=== PATIENT | female | born 2000 | race Caucasian/White ===

== ENCOUNTER 2024-10-03 10:56 | Outpatient (AMB) | payer MEDICAID, SELFPAY ==
[2024-10-03 11:13] VITALS: BP 121/79; PULSE 82; RESP 16; TEMP 36.7; O2SAT 98; BMI 29.9
--- NOTE | 2024-10-03 11:13 | OBCLNT_ITS ---
Vital Signs 10/03/24 11:13 Height 1.6 m Height Method Stated Weight 76.827 kg Weight Measurement Method Standing Scale BMI 29.9 BP 121/79 Blood Pressure Source Automatic Cuff Blood Pressure Location Left Upper Arm Position Sitting Respiration 16 Pulse 82 Pulse Source Monitor Temp 98.1 F Temp Source Oral Pulse Oximetry (%) 98 Oxygen Delivery Method Room Air Allergies/Home Meds Allergies & Medications Allergies Penicillins Allergy (Severe, Verified 10/03/24 11:14) Rash Medication Reconciliation vits no.126-ferrous fum 28 mg iron-folic acid 800 mcg tablet (Classic ) 1 tab PO QDAY 04/20/20 [History Confirmed 10/03/24] Intake Visit Data Collection New Patient or Established: Established Patient (seen at [facility] within 3 years) Reason for Visit:: INITIAL CARE Seen by Clinical Staff ONLY (RN/MA): No Study Abroad Coordinator Required: No Do You Feel Safe at Home: Yes Authorities Contacted: N/A PCP or OBGYN visit in last 3 months: No Hx Now: Yes Are you currently on any form of Control: No Last menstrual period: 06/02/24 Pain Present Currently: No Pain Scale Used: Prasad-Elaine/Numerical Pain scale:: 0 Smoking Status Smoking Status: Never smoker Questionnaires Covid-19 Vaccine Questionnaire Has patient been vacinated for Covid-19 Have you been vacinated for Covid-19: Yes PHQ-9 PHQ-2 Over the last 2 weeks, how often have you been bothered by any of the following problems? 1. Little interest or pleasure in doing things: not at all 2. Feeling down, depressed, or hopeless: not at all Total score: 0 PHQ-9 3. Trouble falling or staying asleep, or sleeping too much: Not at all 4. Feeling tired or having little energy: Not at all 5. Poor appetite or overeating: Not at all 6. Feeling bad about yourself - or that you are a failure or have let yourself or your family down: Not at all 7. Trouble concentrating on things, such as reading the newspaper or watching television: Not at all 8. Moving or speaking so slowly that other people could have noticed? - Or the opposite - being so fidgety or restless that you have been moving around a lot more than usual: not at all 9. Thoughts that you would be better off or of hurting yourself in some way: Not at all Total score: 0 Source: Developed by Drs. Deniz Younger, Lubna Lynn, Jordy Adkins and colleagues, with an educational ja from [employer]. 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 Feel Safe at Home: Yes Past Medical History Past Medical History Have you ever been diagnosed with any of the following: Neurological Problems Cerebrovascular Accident (CVA): No Transient Ischemic Attacks (TIA): No Dementia: No Alzheimer's Disease: No Parkinson's Disease: No Brain Tumor: No Meningitis: No Seizures: No Epilepsy: No Multiple Sclerosis: No Cerebral Palsy: No Amyotrophic Lateral Sclerosis (ALS/Callie Gehrig's): No Guillain-Lathrop Syndrome: No Brown's Palsy: No Migraine: No Traumatic Brain Injury: No Cardiology Problems Myocardial Infarction: No Cardiac Arrhythmia: No Atrial Fibrillation: No Angina: No Heart Murmur: No Coronary Artery Disease: No Atherosclerotic Heart Disease: No Peripheral Vascular Disease: No Hypercholesterolemia: No Congestive Heart Failure: No Hypertension: No Respiratory Problems Chronic Obstructive Pulmonary Disease (COPD): No Asthma: No Bronchitis: No Emphysema: No Pneumonia: No Pulmonary Fibrosis: No Tuberculosis: No Pulmonary Embolism: No Pulmonary Edema: No Hx Cough: No Cough: No Wheezing: No Chest Deformities: No Smoking: No Smoking Cessation Counseling: No Smoking Exposure: No Tobacco Use: No Stomache/Intestinal Problems Liver Cancer: No Hepatitis: No Cirrhosis: No Pancreatic Cancer: No Pancreatitis: No Gall Bladder Disease: No Colorectal Cancer: No Crohn's Disease: No Genital/Urinary Problems Chronic Kidney Disease: No Renal Disease: No Reproductive Problems Breast Cancer: No Endometriosis: No Fibroids: No Genital Herpes: No Gonorrhea: No Previous Pregnancies: Yes Musculoskeletal Problems Muscular Dystrophy: No Myasthenia Gravis: No Marfan's Syndrome: No Bone Cancer: No Head,Eye,Nose,Throat Problems Glaucoma: No Blind: No Endocrine Problems Diabetes Mellitus Type 1: No Diabetes Mellitus Type 2: No Blood Problems Anemia: Yes Other Problems Blood Transfusions: No Blood Transfusion Reaction: No Anesthesia Reactions: No Organ Transplant: No Chemotherapy: No Radiation Therapy: No Hyperbaric Therapy: No MRSA: No VRSA: No Vancomycin-Resistant Enterococci: No Human Immunodeficiency Virus (HIV): No Chicken Pox: No Measles: No Mumps: No Rubella (Afghan Measles): No Pertussis: No Clostridium Difficile: No Cancer: No Cervical Cancer: No Lung Cancer: No Ovarian Cancer: No History of Present Illness HPI Narrative Patient is a 3 para 2 presenting to establish care. Her last menstrual period was on June 02, 2024, but she notes having irregular cycles. Patient reports this as her worst so far, with significant weight loss, severe nausea, and inability to eat or drink. She is unable to have breakfast and struggles to consume water. These symptoms have been ongoing, though the exact onset is unclear. The severity is significant enough to impact her daily nutrition intake. No medication has been given for these symptoms prior to this visit. Patient had initial labs done at [facility] to confirm but has not had any labs or testing performed yet. This is her first visit for this . She has delivered two previous children, with her second delivery attended by one of the doctors in this practice. Obstetric history includes L2. Current is at 9 weeks 0 days (corrected by ultrasound) with an estimated due date of May 08, 2025. Medical history includes an ovarian cyst, size comparable to a baby's head. Surgical history includes ovarian cyst removal in [place] with a large incision made. 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 Review of systems is positive for weight loss, nausea, decreased appetite, inability to eat breakfast, and difficulty drinking water. OB Ultrasound OB Ultrasound Ultrasound technique: transabdominal Gestational sac assessment: Presence, location, size, shape: - Ultrasound (10/03/2024): - Gestational age: 9 weeks 0 days - heart rate detected OB Initial Visit OB Flowsheet OB Flowsheet Initial Weight: Not Recorded Date -?-?-?-?-?-?-?-?-?-?-?-?- EGA Weight Edema CTX Effacement BP Fundal ht Pres Dilation Effacement Station Visit Note Alb Glu FHR Mov 10/03/24 -?-?-?-?-?-?-?-?-?-?-?-?- 9w 0d 76.827 kg 121/79 Patie nt is a 3 para 2 presenting to establish care. Her last menstrual period was on June 02, 2024, but she notes having irregular cycles. Patient reports this as her worst so far, with significant weight loss, severe nausea, and inability to eat or drink. - Ultrasound examination revealed gestat ional age of 9 weeks and 0 days, with cardiac activity. - Adjusted estimated due date (JC) to N [id number] based on ultrasound findings. - Perform comprehensive labs. - Offer genetic testing, including optio n for gender determination. - Schedule follow-up appointment in 2 we eks for repeat ultrasound. - Provide patient with ultrasound images . - Prescribe antiemetic medication. - Provide patient education on managemen t of nausea and vomiting in . - Monitor weight and nutritional status at follow-up visits. 175 Menstrual History Menstrual reliability: definite Flow: heavy Menstrual regularity: irregular Monthly: No Age at menarche: 15 On control pills at conception: No Date of positive home test: 09/05/24 Associated symptoms (LMP): Reports nausea, vomiting, fatigue and breast tenderness OB History : 3 Para: 2 Hx # Pregnancies: 1 Hx Total # of Abortions (Spontaneous & Elective): 1 # of Living Children: 2 Delivery History 1st : Child's name: MOON date: 09/20/18 sex: male Gestational age at delivery (weeks): 37 Delivery type: vaginal Delivery complications: NONE History of depression before or after : No 2nd : Child's name: YIFAN date: 08/20/20 sex: female Gestational age at delivery (weeks): 40 Delivery type: vaginal History of depression before or after : No Infection History & Risk Evaluation History of STDs: none Genetic Screening & History Genetic Screening/Teratology Counseling - Includes patient, baby's father, or anyone in either family with: 1. Patient's age 35 years or older as of estimated date of delivery: No 2. Thalassemia (Burundian, Romansh, Mediterranean, or Background); MCV less than 80: No 3. Neural Tube Defect (Meningomyelocele, Spina Bifida, or Anencephaly): No 4. Congenital Heart Defect: No 5. Down Syndrome: No 6. Bryon-Sachs (Ashkenazi Pentecostal, Cajun, Yi Addison): No 7. [place] Disease (Ashkenazi Pentecostal): No 8. Familial Dysautonomia (Ashkenazi Pentecostal): No 9. Sickle Cell Disease or Trait (): No 10. Hemophilia or other blood disorders: No 11. Muscular Dystrophy: No 12. Cystic Fibrosis: No 13. Cipriano's Chorea: No 14. Mental Retardation/Autism: No 15. Other inherited genetic or chromosomal disorder: No 16. Maternal Metabolic Disorder (EG,TYPE 1 Diabetes, PKU): No 17. Patient or baby's father had a child with defects not listed above: No 18. Recurrent loss or a stillbirth: No 19. Medications (including supplements, vitamins, herbs or otc drugs)/illicit/recreational drugs/alcohol since last menstrual period: No 20. Any other: No Infection History 1. Live with someone with TB or exposed to TB: No 2. Rash or viral illness since last menstrual period: No 3. Hepatitis B,C: No Other (see comments) Source: [employer] Review of Systems Constitutional Constitutional: Reports fatigue Gastrointestinal Gastrointestinal: Reports nausea and Reports vomiting Endocrine Endocrine: Reports fatigue Assessment & Plan Diagnosis / Problem List (1) Supervision of high risk , unspecified, first trimester: Status: Acute Plan Intrauterine : - Ultrasound examination revealed gestational age of 9 weeks and 0 days, with cardiac activity. - Adjusted estimated due date (JC) to May 08, 2025 based on ultrasound findings. - Perform comprehensive labs. - Offer genetic testing, including option for gender determination. - Schedule follow-up appointment in 2 weeks for repeat ultrasound. - Provide patient with ultrasound images. Hyperemesis gravidarum: - Patient reports significant nausea, inability to eat or drink, and weight loss. - Prescribe antiemetic medication. - Provide patient education on management of nausea and vomiting in . - Monitor weight and nutritional status at follow-up visits. History of ovarian cyst: - Patient reports past surgical history of ovarian cystectomy performed in [place]. - Monitor for any recurrence of ovarian cysts during care. Office Procedures OB Clinic LOC & Office Proc's Nursing/Assessment Patient Status: Established Patient OB Clinic Nursing Assessment: Medication Reconciliation, Update PMH in EMR and Vital Signs OB Clinic Coordination of Care: Complex Care and Chronic Disease 1-5, Consent,records obtained, informed consent, Education Simp Pt/Fam, Lab and Imaging orders, Results/Orders obtained and Staff clarify orders Special Needs: Heart tones Established Patient Charge Established Patient Point Assignment: 135 Established Patient Point Charge: EP Level 4 (120-155) Bedside Ultrasounds US Transabdominal <14 weeks at bedside: Yes
== END 2024-10-03 11:37 | disposition home or self-care (01) ==
LOC: HODSOBC 10:56
PROVIDERS: PCP Family Medicine; Referring Provider Family Medicine; Supervising Provider Obstetrics & Gynecology; Visit Provider Obstetrics & Gynecology
DX: O09.891 Supervision of other high risk pregnancies, first trimester (principal); Z3A.09 9 weeks gestation of pregnancy; O21.0 Mild hyperemesis gravidarum; O99.891 Other specified diseases and conditions complicating pregnancy; R63.4 Abnormal weight loss; Z87.42 Personal history of other diseases of the female genital tract
CPT/HCPCS: 76801; 99214; G0463

== ENCOUNTER 2024-10-15 19:59 | Emergency (ER) | payer MEDICAID, SELFPAY ==
[2024-10-15 20:01] VITALS: BMI 30.5
[2024-10-15 20:27] VITALS: BP 118/54; PULSE 81; RESP 17; TEMP 36.8; O2SAT 98
--- NOTE | 2024-10-15 20:54 | EDNOTE_ITS ---
ED Abdominal Pain RME/HPI General Stated complaint: 10 WKS PREG VOMITING SOME BLOOD Time seen by provider: 10/15/24 20:14 Arrival date/time: 10/15/24 19:59 Source: patient, RN notes reviewed and old records reviewed Mode of arrival: ambulatory Limitations: no limitations RME / HPI RME / HPI narrative: 24yof A1 approximately 10 weeks gestation presents to ED for nausea and vomiting. Patient reports morning sickness throughout but with increased vomiting episodes for the past week. Patient reports noticing small specks of blood in emesis intermittently the past 2 days. Also c/o mild dysuria x3 weeks. No fever, diarrhea, pelvic pain, vaginal bleeding or dizziness reported. No medications or treatments since onset. OB: Dr. Gan. Related Data Home Medications ?Medication ?Instructions ?Recorded ?Confirmed vits no.126-ferrous fum 1 tab PO QDAY 0 10/03/24 28 mg iron-folic acid 800 mcg tablet (Classic ) Previous Rx's ?Medication ?Instructions ?Recorded cephalexin 500 mg capsule 500 mg PO BID 7 days #14 cap s 10/15/24 ondansetron 4 mg disintegrating 4 mg PO Q6H PRN nausea and 10/15/24 tablet vomiting #20 tabs Allergies Allergy/AdvReac Type Severity Reaction Status Date / Time Penicillins Allergy Severe Rash Verified 10/15/24 20:05 Review of Systems Review of Systems Systems Reviewed: All systems reviewed, normal except as documented Constitutional Constitutional: Denies chills and Denies fever(s) ENT Ears, Nose, Mouth, and Throat: Denies dizziness Gastrointestinal Gastrointestinal: Denies abdominal pain, Denies loose stools, Reports nausea and Reports vomiting Genitourinary Genitourinary: Denies abnormal vaginal bleeding, Reports dysuria and Denies pelvic pain Neurologic Neurologic: Denies dizziness Past Medical History Surgical History OTHER SURGICAL HX: Right oophorectomy Social History SMOKING STATUS: Never smoker SUBSTANCE USE: does not use ALCOHOL: Never Past Medical History Comments PMH COMMENT: Denies past medical history ED Exam General Limitations: Present no limitations General appearance: Present alert and in no apparent distress Head Head exam: Present atraumatic and normocephalic Eye Eye exam: Present normal appearance, PERRL and EOMI ENT ENT exam: Present normal exam and mucous membranes moist Neck Neck exam: Present normal inspection and full ROM Chest Chest inspection: Present normal inspection and symmetric chest wall rise Respiratory Respiratory exam: Present normal lung sounds bilaterally; Absent respiratory distress Cardiovascular Cardiovascular exam: Present regular rate and normal rhythm Abdominal Exam Abdominal exam: Present soft; Absent distention, tenderness, guarding or rebound Extremities Exam Extremities exam: Present normal inspection and full ROM Back Exam Back exam: Present normal inspection and full ROM; Absent CVA tenderness (R) or CVA tenderness (L) Neurological Exam Neurological exam: Present alert and oriented X3 Psychiatric Psychiatric exam: Present normal affect and normal mood Skin Skin exam: Present warm, dry, intact and normal color Course Quality Measures none Orders Category Date Time Status CBC Stat Lab 10/15/24 20:54 Completed CMP [Comprehensive Metabolic Panel] Stat Lab 10/15/24 20:54 Completed Lipase Stat Lab 10/15/24 20:54 Completed UA [Urinalysis] Stat Lab 10/15/24 21:15 Completed Ondansetron Inj [Zofran Inj] Med 10/15/24 21:07 Discontinued 4 mg IV X1 ONE Sodium Chloride 0.9% 1000 ml [Ns] 1,000 ml Med 10/15/24 21:08 Discontinued IV 999 mls/hr Vital Signs Vital signs: Vital Signs Temperature 98.2 F 10/15/24 20:27 Pulse Rate 81 10/15/24 20:27 Respiratory Rate 17 10/15/24 20:27 Blood Pressure 118/54 L 10/15/24 20:27 Pulse Oximetry (%) 98 10/15/24 20:27 Oxygen Delivery Method Room Air 10/15/24 20:27 Abdominal Pain MDM MDM Narrative MDM Narrative:: 24yof A1 approximately 10 weeks gestation presents to ED for nausea and vomiting. Patient reports morning sickness throughout but with increased vomiting episodes for the past week. Patient reports noticing small specks of blood in emesis intermittently the past 2 days. Also c/o mild dysuria x3 weeks. No fever, diarrhea, pelvic pain, vaginal bleeding or dizziness reported. No medications or treatments since onset. OB: Dr. Gan. Patient reassessed. She is feeling better, tolerating p.o. after zofran/IVF administered. Labs reassuring. Will treat for mild UTI as patient is symptomatic. Encouraged rest, fluids, symptomatic treatment prn. Follow up with Dr. Caro as scheduled. Stable for dc, RTED precautions given. Patient data External records reviewed:: [facility] previous records (11/18/22 ED visit for miscarriage in early ) Clinical information provided by:: patient Social determinants that could affect healthcare access:: other (specify) (Unemployed) Patient has the following chronic illnesses:: none How is presenting disease/condition affected by chronic disease/condition?: no chronic disease Evaluation data The following diagnostics were reviewed and interpreted by me:: lab results Lab and/or radiology exams considered but not ordered:: Ob ultrasound: denies pelvic pain or vaginal bleeding Interpretation Summary: CBC 8.5 Hgb 12.1 UA +ketones, +leuks Medications / Prescriptions Medications or Prescriptions considered but not ordered:: none Medication administrations:: Medication Administration History Discontinued Medications Sodium Chloride (Ns) 1,000 mls @ 999 mls/hr IV .Q1H1M ONE Stop: 10/15/24 22:08 Last Infusion: 10/15/24 22:52 Dose: Infused Documented By: Admin: 10/15/24 21:46 Dose: 999 mls/hr Documented By: HUMBERTO Ondansetron HCl (Ondansetron Inj 2 Mg/Ml Inj 2 Ml) 4 mg IV X1 ONE; Protocol Stop: 10/15/24 21:08 Last Admin: 10/15/24 22:08 Dose: 4 mg Documented By: CARMEN Above medications administered in the ED Consultations Consultation(s) initiated? (list below): No Diagnosis Differential diagnosis abdominal pain: other (Nausea and vomiting in , hyperemesis gravidarum, dehydration, electrolyte imbalance, UTI) Most likely diagnosis given after review of the tests above:: Nausea and vomiting in Admission Indicated Admission indicated?: not indicated Admission Request Was there a request for admission?: No Disposition Plan Disposition Plan: Discharge Discharge Attestation Discharge Attestation: The patient and all family members were given an opportunity to ask questions and understood the discharge instructions. Discharge instructions specifically effects, indications for sooner follow up or return to the emergency department, and the expected course of current diagnosis. Patient condition: Stable Discharge Plan Plan Patient Disposition: HOME (Self Care) Patient condition on transfer: Stable Prescriptions/Referrals Prescriptions/Med Rec: New ondansetron 4 mg tablet,disintegrating 4 mg PO Q6H PRN (Reason: nausea and vomiting) Qty: 20 0RF cephalexin 500 mg capsule 500 mg PO BID 7 Days Qty: 14 0RF No Action Classic 28 mg iron- 800 mcg tablet 1 tab PO QDAY Referrals: Filipe Oliva MD [Primary Care Provider] - In 1 week Problem List Clinical Impression: Nausea and vomiting in , Urinary tract infection during Patient/Caregiver Discharge Instructions Education Materials: Severe Morning Sickness ... Print Language: Greek Stand Alone Forms: Deb Award Info., Patient Portal Info Letter PA/TERRITORY SALES EXECUTIVE Supervising Physician PA/TERRITORY SALES EXECUTIVE Supervising Physician: Lynette
[2024-10-15 21:26] LABS: Collection Type, Urine Catheter
[2024-10-15 21:37] LABS: Basophils % (Auto) 1 % (0-2.5); Eosinophils # (Auto) 0.1 Thou/mm3 (0.0-0.5); Eosinophils % (Auto) 1 % (0-10); Hematocrit 35.4 % (36.0-46.0); Hemoglobin 12.1 g/dL (12.0-16.0); Immature Granulocytes % (Auto) 0 % (0-0); Immature Granulocytes Auto 0.03 Thou/mm3 (0.00-0.00); Lymphocytes # (Auto) 1.5 Thou/mm3 (1.0-4.8); Lymphocytes % (Auto) 17 % (10-50); Mean Corpuscular HGB Conc 34.2 g/dl (31.0-37.0); Mean Corpuscular Hemoglobin 28.6 pg (25.0-35.0); Mean Corpuscular Volume 84 fL (80-100); Monocytes # (Auto) 0.5 Thou/mm3 (0.0-0.8); Monocytes % (Auto) 6 % (0-12); Neutrophils # (Auto) 6.4 Thou/mm3 (1.8-7.7); Neutrophils % (Auto) 75 % (37-80); Nucleated Red Blood Cell % 0 /100 WBC (0); Platelet Count 298 Thou/mm3 (140-440); RDW Standard Deviation 42.8 fL (36.4-46.3); Red Blood Count 4.23 Miln/mm3 (4.00-5.20); White Blood Count 8.5 Thou/mm3 (3.6-11.0)
[2024-10-15 21:43] LABS: Bilirubin,Urine Negative (Negative); Blood,Urine Negative (Negative); Clarity,Urine Clear (Clear/Hazy); Color,Urine Yellow (Lt Yel-Yel); Glucose, Urine Negative (Negative); Ketones,Urine 2+ (Negative); Leukocyte Esterase,Urine Positive (Negative); Nitrite,Urine Negative (Negative); PH,Urine 6.5 (5.0-7.0); Protein,Urine Trace (Neg - Trace); RBC,Urine 3 /hpf (0-3); Specific Gravity,Urine 1.029 (1.001-1.035); Squamous Epithelial Cell,Urine 4 /hpf (0-5); WBC,Urine 17 /hpf (0-5)
[2024-10-15] MEDS: SODIUM CHLORIDE 0.9% 1000 ML 1,000 ML 999 ML IV (21:46)
[2024-10-15 21:52] LABS: Alanine Aminotransferase 21 U/L (10-49); Albumin, Serum 4.7 gm/dL (3.5-5.0); Albumin/Globulin Ratio 1.6 (1.2-2.2); Alkaline Phosphatase 55 U/L (46-116); Anion Gap 11 (7-16); Aspartate Amino Transferase 16 U/L (0-34); BUN/Creatinine Ratio 9 Ratio (12-20); Bilirubin,Total 0.5 mg/dL (0.3-1.2); Blood Urea Nitrogen 7 mg/dL (9-23); Calcium 9.6 mg/dL (8.3-10.6); Calcium (Corrected) 9.6 mg/dL (8.5-10.1); Carbon Dioxide 23.9 mMol/L (20.0-31.0); Chloride 100 mMol/L (98-107); Creatinine (Component) 0.8 mg/dL (0.6-1.3); Estimated Creatinine Clearance 103.3 mL/min (>60); Glucose 97 mg/dL (74-106); Lipase 24 U/L (12-53); Osmolality,Calculated 268 (275-295); Potassium 3.5 mMol/L (3.4-5.1); Sodium 135 mMol/L (136-145); Total Protein 7.7 gm/dL (5.7-8.2); eGFR > 60 See Note
[2024-10-15] MEDS: ONDANSETRON INJ 2 MG/ML INJ 2 ML 4 MG IV (22:08)
== END 2024-10-15 23:04 | disposition home or self-care (01) ==
PROVIDERS: Physician Assistant; Emergency Provider Emergency Medicine; PCP Family Medicine
DX: O21.9 Vomiting of pregnancy, unspecified (principal); O23.41 Unspecified infection of urinary tract in pregnancy, first trimester; N39.0 Urinary tract infection, site not specified; Z3A.10 10 weeks gestation of pregnancy
CPT/HCPCS: 36415; 80053; 81001; 83690; 85025; 99284; J2405; J7030

== ENCOUNTER 2024-10-25 13:42 | Outpatient (AMB) | payer MEDICAID, SELFPAY ==
--- NOTE | 2024-10-25 13:48 | AMB.OBVISIT ---
Vital Signs 10/25/24 13:53 Height 1.57 m Height Method Stated Weight 74.559 kg Weight Measurement Method Standing Scale BMI 30.0 BP 111/74 Blood Pressure Source Automatic Cuff Blood Pressure Location Left Upper Arm Position Sitting Respiration 16 Pulse 80 Pulse Source Monitor Temp 97.7 F Temp Source Oral Pulse Oximetry (%) 98 Oxygen Delivery Method Room Air Allergies/Home Meds Allergies & Medications Allergies Penicillins Allergy (Severe, Verified 10/25/24 13:54) Rash Medication Reconciliation clotrimazole 1 % vaginal cream (Gyne-Lotrimin 7) 1 appful vaginal QHS 7 days #45 grams 10/25/24 [Rx] ondansetron 4 mg disintegrating tablet 4 mg PO Q6H PRN nausea and vomiting 30 days #120 tabs 10/25/24 [Rx] vitamin with calcium no.72-iron 27 mg-folic acid 1 mg tablet ( Vitamins Plus Low Iron) 1 tab PO QDAY 90 days #90 tabs 10/25/24 [Rx] Intake Visit Data Collection New Patient or Established: Established Patient (seen at [facility] within 3 years) Reason for Visit:: Routine visit at 12 weeks and 1 day gestation, recent ER visit for blood spots on my vomer and severe vomiting Seen by Clinical Staff ONLY (RN/MA): No Industrial Maintenance Mechanic Required: No Do You Feel Safe at Home: Yes Authorities Contacted: N/A PCP or OBGYN visit in last 3 months: Yes Hx Now: Yes Are you currently on any form of Control: No Pain Present Currently: No Pain Scale Used: Prasad-Elaine/Numerical Pain scale:: 0 Smoking Status Smoking Status: Never smoker Questionnaires Covid-19 Vaccine Questionnaire Has patient been vacinated for Covid-19 Have you been vacinated for Covid-19: Yes PHQ-9 PHQ-2 Over the last 2 weeks, how often have you been bothered by any of the following problems? 1. Little interest or pleasure in doing things: not at all 2. Feeling down, depressed, or hopeless: not at all Total score: 0 PHQ-9 3. Trouble falling or staying asleep, or sleeping too much: Not at all 4. Feeling tired or having little energy: Not at all 5. Poor appetite or overeating: Not at all 6. Feeling bad about yourself - or that you are a failure or have let yourself or your family down: Not at all 7. Trouble concentrating on things, such as reading the newspaper or watching television: Not at all 8. Moving or speaking so slowly that other people could have noticed? - Or the opposite - being so fidgety or restless that you have been moving around a lot more than usual: not at all 9. Thoughts that you would be better off or of hurting yourself in some way: Not at all Total score: 0 Source: Developed by Drs. Deniz Younger, Lubna Lynn, Jordy Adkins and colleagues, with an educational ja from [employer]. Depression screen completed yes Social History Living Situation History Lives With: Family Housing: House Tobacco History Smoking Status: Never smoker Second Hand Smoke Exposure: No Alcohol History Alcohol Intake: Never Domestic Abuse History Do You Feel Safe at Home: Yes Past Medical History Past Medical History Have you ever been diagnosed with any of the following: Neurological Problems Cerebrovascular Accident (CVA): No Transient Ischemic Attacks (TIA): No Dementia: No Alzheimer's Disease: No Parkinson's Disease: No Brain Tumor: No Meningitis: No Seizures: No Epilepsy: No Multiple Sclerosis: No Cerebral Palsy: No Amyotrophic Lateral Sclerosis (ALS/Callie Gehrig's): No Guillain-Spencer Syndrome: No Brown's Palsy: No Migraine: No Traumatic Brain Injury: No Cardiology Problems Myocardial Infarction: No Cardiac Arrhythmia: No Atrial Fibrillation: No Angina: No Heart Murmur: No Coronary Artery Disease: No Atherosclerotic Heart Disease: No Peripheral Vascular Disease: No Hypercholesterolemia: No Congestive Heart Failure: No Hypertension: No Respiratory Problems Chronic Obstructive Pulmonary Disease (COPD): No Asthma: No Bronchitis: No Emphysema: No Pneumonia: No Pulmonary Fibrosis: No Tuberculosis: No Pulmonary Embolism: No Pulmonary Edema: No Hx Cough: No Cough: No Wheezing: No Chest Deformities: No Smoking: No Smoking Cessation Counseling: No Smoking Exposure: No Tobacco Use: No Stomache/Intestinal Problems Liver Cancer: No Hepatitis: No Cirrhosis: No Pancreatic Cancer: No Pancreatitis: No Gall Bladder Disease: No Colorectal Cancer: No Crohn's Disease: No Genital/Urinary Problems Renal Disease: No Reproductive Problems Breast Cancer: No Endometriosis: No Fibroids: No Genital Herpes: No Gonorrhea: No Previous Pregnancies: Yes Musculoskeletal Problems Muscular Dystrophy: No Myasthenia Gravis: No Marfan's Syndrome: No Bone Cancer: No Head,Eye,Nose,Throat Problems Glaucoma: No Blind: No Endocrine Problems Diabetes Mellitus Type 1: No Diabetes Mellitus Type 2: No Blood Problems Anemia: Yes Other Problems Blood Transfusions: No Blood Transfusion Reaction: No Anesthesia Reactions: No Organ Transplant: No Chemotherapy: No Radiation Therapy: No Hyperbaric Therapy: No MRSA: No VRSA: No Vancomycin-Resistant Enterococci: No Human Immunodeficiency Virus (HIV): No Chicken Pox: No Measles: No Mumps: No Rubella (Sudanese Measles): No Pertussis: No Clostridium Difficile: No Cancer: No Cervical Cancer: No Lung Cancer: No Ovarian Cancer: No History of Present Illness OPHELIA Mendoza is a 12 weeks and 1 day patient presenting for a visit. She was last seen on October 03, 2024, and initiated her care at [facility]. The patient reports a recent emergency room visit due to severe vomiting and noticing blood spots on her vomer (throat). She was given Zofran in the ER, which has helped improve her symptoms. The patient denies any current cramping or spotting. Regarding medication adherence, the patient has not been taking her vitamins and requests a prescription. She also requests a refill for her anti-nausea medication (Zofran). Medications and Supplements - Zofran - Given in ER for severe vomiting - vitamins - Not taking Review of Systems HEENT: Positive for blood spots on vomer (throat). Gastrointestinal: Positive for severe vomiting, negative for cramping. Genitourinary: Negative for spotting. Vital Signs - Heart Rate: 158 bpm Physical Examination Abdomen: Fundal height consistent with 12 weeks gestation. Laboratory, Imaging, and Diagnostic Test Results - Hepatitis B: Negative - Hepatitis C: Negative - RPR: Non-reactive - Rubella: Immune - Blood group: O-positive - Antibody screen: Negative - HIV: Negative - Gonorrhea: Negative - Chlamydia: Negative - CBC: - Hemoglobin: 11.8 g/dL - Hematocrit: 35.9% - Platelets: 310 x10^3/?L - Urinalysis: - Appearance: Turbid - WBC esterase: 1+ - Ketones: Trace - Bacteria: Moderate - Culture: No growth - Maternity 21: - fraction: 18% - gender: Male - Aneuploidy testing: Negative - Ultrasound: - Gestational age: 12 weeks - heart rate: 158 bpm Care OB Visit Log OB Flowsheet Initial Weight: Not Recorded Date <del>?</del> EGA Weight Edema CTX Effacement BP Fundal ht Pres Dilation Effacement Station Visit Note Alb Glu FHR Mov 10/03/24 <del>?</del> 9w 0d 76.827 kg 121/79 Patient is a 3 para 2 presenting to establish care. Her last menstrual period was on June 02, 2024, but she notes having irregular cycles. Patient reports this as her worst so far, with significant weight loss, severe nausea, and inability to eat or drink. - Ultrasound examination revealed gestational age of 9 weeks and 0 days, with cardiac activity. - Adjusted estimated due date (JC) to May 08, 2025 based on ultrasound findings. - Perform comprehensive labs. - Offer genetic testing, including option for gender determination. - Schedule follow-up appointment in 2 weeks for repeat ultrasound. - Provide patient with ultrasound images. - Prescribe antiemetic medication. - Provide patient education on management of nausea and vomiting in . - Monitor weight and nutritional status at follow-up visits. 175 10/25/24 <del>?</del> 12w 1d 74.559 kg 111/74 Vital Signs - Heart Rate: 158 bpm Physical Examination Abdomen: Fundal height consistent with 12 weeks gestation. Laboratory, Imaging, and Diagnostic Test Results - Hepatitis B: Negative - Hepatitis C: Negative - RPR: Non-reactive - Rubella: Immune - Blood group: O-positive - Antibody screen: Negative - HIV: Negative - Gonorrhea: Negative - Chlamydia: Negative - CBC: - Hemoglobin: 11.8 g/dL - Hematocrit: 35.9% - Platelets: 310 x10^3/?L - Urinalysis: - Appearance: Turbid - WBC esterase: 1+ - Ketones: Trace - Bacteria: Moderate - Culture: No growth - Maternity 21: - fraction: 18% - gender: Male - Aneuploidy testing: Negative - Ultrasound: - Gestational age: 12 weeks - heart rate: 158 bpm. Woodrow Rodrigez?P? at 12w1d, presents for routine visit following a recent ER visit for hyperemesis gravidarum. She reports vomiting with blood spots noted in the throat, managed in the ER with Zofran, which improved symptoms. She denies cramping or spotting. Currently not taking vitamins. Fundal height is consistent with gestational age. Labs show mild anemia (Hgb 11.8, Hct 35.9). Male fetus confirmed via genetic testing. Plan: Prescribe Zofran for ongoing nausea; provide refills [facility] Encourage increased oral hydration and small, frequent meals Refer for 20-week anatomy ultrasound at [facility] (await scheduling call) Follow up in 4 weeks Continue standard counseling and review warning signs of complications 160 JC Calculator Estimated Delivery Date Method Current WG Current Estimate 05/08/25 Ultrasound #1 12w 3d Other Estimates 03/09/25 LMP (Uncertain) 21w 0d Exam General General Appearance: alert, in no apparent distress and healthy appearing Head Head exam: atraumatic Neck Neck exam: Present normal inspection and trachea midline Chest Chest inspection: Present normal inspection and symmetric chest wall rise External exam: Present normal external exam; Absent tenderness Neuro Neurological exam: Present oriented X3 Psych Psychiatric exam: Present normal affect and normal mood Assessment & Plan Diagnosis / Problem List (1) Supervision of high risk , unspecified, first trimester: Status: Acute (2) Acute vaginitis: Status: Acute Plan Romelia Mendoza is a 12 weeks and 1 day patient presenting for a visit with a recent history of severe nausea and vomiting requiring an ER visit. Intrauterine at 12 weeks 1 day gestation Assessment: Patient is at 12 weeks and 1 day gestation based on ultrasound measurements, which is consistent with her dates. heart rate is 158 bpm, which is within normal range. Genetic testing (Maternity 21) shows 18% fraction, consistent with male fetus, and negative for aneuploidy. Comprehensive labs were completed, including hepatitis B and C (negative), RPR (non-reactive), rubella (immune), blood type (O positive with negative antibody screen), HIV (negative), and gonorrhea and chlamydia (negative). CBC shows hemoglobin of 11.8 g/dL and hematocrit of 35.9%, indicating mild anemia. Initial urine screening showed turbid appearance with trace ketones and moderate bacteria, but final culture showed no growth. Plan: - Continue care with follow-up appointment in 4 weeks - Scheduled anatomy ultrasound at 20 weeks with [facility] in [place] (referral sent) - Prescribe vitamins - Encourage increased hydration Hyperemesis gravidarum Assessment: Patient reports recent ER visit due to severe vomiting, which resulted in blood spots on her vomer (likely Delphine-Velasco tears). She was prescribed Zofran (ondansetron) in the ER, which has improved her symptoms. Plan: - Continue Zofran (ondansetron) as needed for nausea and vomiting - Provide prescription refills for Zofran - Educate on importance of hydration and small, frequent meals Office Procedures OB Clinic LOC & Office Proc's Nursing/Assessment Patient Status: Established Patient OB Clinic Nursing Assessment: Medication Reconciliation, Update PMH in EMR and Vital Signs OB Clinic Coordination of Care: Complex Care and Chronic Disease 1-5, Consent,records obtained, informed consent, Education Simp Pt/Fam, Lab and Imaging orders, Results/Orders obtained and Staff clarify orders Special Needs: Heart tones Miscellaneous Interventions: Blood/Urine Collection Established Patient Charge Established Patient Point Assignment: 165 Established Patient Point Charge: EP Level 5 (160-above)
[2024-10-25 13:53] VITALS: BP 111/74; PULSE 80; RESP 16; TEMP 36.5; O2SAT 98
== END 2024-10-25 14:46 | disposition home or self-care (01) ==
LOC: HODSOBC 13:42
PROVIDERS: PCP Family Medicine; Referring Provider Family Medicine; Supervising Provider Obstetrics & Gynecology; Visit Provider Obstetrics & Gynecology
DX: O09.891 Supervision of other high risk pregnancies, first trimester (principal); Z3A.12 12 weeks gestation of pregnancy; N76.0 Acute vaginitis; O21.0 Mild hyperemesis gravidarum; Z88.0 Allergy status to penicillin
CPT/HCPCS: 99215; G0463

== ENCOUNTER 2024-11-22 14:02 | Outpatient (AMB) | payer MEDICAID, SELFPAY ==
[2024-11-22 14:31] VITALS: BP 100/66; PULSE 71; RESP 14; TEMP 36.6; O2SAT 95
--- NOTE | 2024-11-22 14:31 | AMB.OBVISIT ---
Vital Signs 11/22/24 14:31 Height 1.57 m Height Method Stated Weight 74.049 kg Weight Measurement Method Standing Scale BMI 30.0 BP 100/66 Blood Pressure Source Automatic Cuff Blood Pressure Location Right Upper Arm Position Sitting Respiration 14 Pulse 71 Pulse Source Monitor Temp 97.8 F Temp Source Oral Pulse Oximetry (%) 95 Oxygen Delivery Method Room Air Allergies/Home Meds Allergies & Medications Allergies Penicillins Allergy (Severe, Verified 11/22/24 14:32) Rash Medication Reconciliation ondansetron 4 mg disintegrating tablet 4 mg PO Q6H PRN nausea and vomiting 30 days #120 tabs 10/25/24 [Rx Confirmed 11/22/24] vitamin with calcium no.72-iron 27 mg-folic acid 1 mg tablet ( Vitamins Plus Low Iron) 1 tab PO QDAY 90 days #90 tabs 10/25/24 [Rx Confirmed 11/22/24] Intake Visit Data Collection New Patient or Established: Established Patient (seen at [facility] within 3 years) Reason for Visit:: CARE Seen by Clinical Staff ONLY (RN/MA): No Licensed Physical Therapy Assistant Required: No Do You Feel Safe at Home: Yes Authorities Contacted: N/A PCP or OBGYN visit in last 3 months: Yes Hx Now: Yes Are you currently on any form of Control: No Pain Present Currently: No Pain Scale Used: Prasad-Elaine/Numerical Pain scale:: 0 Smoking Status Smoking Status: Never smoker Questionnaires Covid-19 Vaccine Questionnaire Has patient been vacinated for Covid-19 Have you been vacinated for Covid-19: Yes PHQ-9 PHQ-2 Over the last 2 weeks, how often have you been bothered by any of the following problems? 1. Little interest or pleasure in doing things: not at all 2. Feeling down, depressed, or hopeless: not at all Total score: 0 PHQ-9 3. Trouble falling or staying asleep, or sleeping too much: Not at all 4. Feeling tired or having little energy: Not at all 5. Poor appetite or overeating: Not at all 6. Feeling bad about yourself - or that you are a failure or have let yourself or your family down: Not at all 7. Trouble concentrating on things, such as reading the newspaper or watching television: Not at all 8. Moving or speaking so slowly that other people could have noticed? - Or the opposite - being so fidgety or restless that you have been moving around a lot more than usual: not at all 9. Thoughts that you would be better off or of hurting yourself in some way: Not at all Total score: 0 Source: Developed by Drs. Deniz Younger, Lubna Lynn, Jordy Adkins and colleagues, with an educational ja from [employer]. 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 Her last menstrual period was on June 02, 2024, but she notes having irregular cycles. Patient reports this as her worst so far, with significant weight loss, severe nausea, and inability to eat or drink. - Ultrasound examination revealed gestational age of 9 weeks and 0 days, with cardiac activity. - Adjusted estimated due date (JC) to May 08, 2025 based on ultrasound findings. - Perform comprehensive labs. - Offer genetic testing, including option for gender determination. - Schedule follow-up appointment in 2 weeks for repeat ultrasound. - Provide patient with ultrasound images. - Prescribe antiemetic medication. - Provide patient education on management of nausea and vomiting in . - Monitor weight and nutritional status at follow-up visits. 10/25/24 <del>?</del> 12w 1d 74.559 kg 111/74 160 Vital Signs - Heart Rate: 158 bpm Physical Examination Abdomen: Fundal height consistent with 12 weeks gestation. Laboratory, Imaging, and Diagnostic Test Results - Hepatitis B: Negative - Hepatitis C: Negative - RPR: Non-reactive - Rubella: Immune - Blood group: O-positive - Antibody screen: Negative - HIV: Negative - Gonorrhea: Negative - Chlamydia: Negative - CBC: - Hemoglobin: 11.8 g/dL - Hematocrit: 35.9% - Platelets: 310 x10^3/?L - Urinalysis: - Appearance: Turbid - WBC esterase: 1+ - Ketones: Trace - Bacteria: Moderate - Culture: No growth - Maternity 21: - fraction: 18% - gender: Male - Aneuploidy testing: Negative - Ultrasound: - Gestational age: 12 weeks - heart rate: 158 bpm. Romelia Mendoza, G?P? at 12w1d, presents for routine visit following a recent ER visit for hyperemesis gravidarum. She reports vomiting with blood spots noted in the throat, managed in the ER with Zofran, which improved symptoms. She denies cramping or spotting. Currently not taking vitamins. Fundal height is consistent with gestational age. Labs show mild anemia (Hgb 11.8, Hct 35.9). Male fetus confirmed via genetic testing. Plan: Prescribe Zofran for ongoing nausea; provide refills [facility] Encourage increased oral hydration and small, frequent meals Refer for 20-week anatomy ultrasound at [facility]? (await scheduling call) Follow up in 4 weeks Continue standard counseling and review warning signs of complications 11/22/24 <del>?</del> 16w 1d 74.049 kg 100/66 absent unknown 16 146 active No OB complaints, no leaking or bleeding AFP today, [facility] appointment pending, discuss sab precaution. continue PNV, increase fluid, rtc 4 week JC Calculator Estimated Delivery Date Method Current WG Current Estimate 05/08/25 Ultrasound #1 16w 1d Other Estimates 03/09/25 LMP (Uncertain) 24w 5d Notes Visit Date: 11/22/24 Last Updated by: Tash Salgado CNM 24 yo . lmp 06/02/24. edc 03/09/25. ob sono: 10/03/24: iup 9w. edc 05/08/25. no dates. O+,abs-,rpr;;nr, rub IM, HBSAG-,HC-,HIV-,GC/CT-, NIPT and carrier screen- Office Procedures OB Clinic LOC & Office Proc's Nursing/Assessment Patient Status: Established Patient OB Clinic Nursing Assessment: Medication Reconciliation, Update PMH in EMR and Vital Signs OB Clinic Coordination of Care: Complex Care and Chronic Disease 1-5, Consent,records obtained, informed consent, Education Simp Pt/Fam, Lab and Imaging orders, Results/Orders obtained and Staff clarify orders Special Needs: Heart tones Established Patient Charge Established Patient Point Assignment: 135 Established Patient Point Charge: EP Level 4 (120-155) Assessment & Plan Diagnosis / Problem List (1) Normal in multigravida in second trimester: Status: Acute Plan aFP today. Maternal- medicine appointment is pending. Discussed SAB precautions. Increase fluids. Continue vitamins. Return in 3 weeks obc Additional Plan Follow Up: 3 Weeks (obc)
== END 2024-11-22 14:53 | disposition home or self-care (01) ==
LOC: HODSOBC 14:02
PROVIDERS: PCP Family Medicine; Referring Provider Family Medicine; Supervising Provider Advanced Practice Midwife; Visit Provider Advanced Practice Midwife
DX: Z34.82 Encounter for supervision of other normal pregnancy, second trimester (principal); Z3A.16 16 weeks gestation of pregnancy; Z88.0 Allergy status to penicillin
CPT/HCPCS: 99214; G0463

== ENCOUNTER 2024-12-27 14:52 | Outpatient (AMB) | payer MEDICAID, SELFPAY ==
[2024-12-27 15:05] VITALS: BP 107/69; PULSE 73; RESP 17; TEMP 36.6; O2SAT 98; BMI 30.2
--- NOTE | 2024-12-27 15:05 | OBCLNT_ITS ---
Vital Signs 12/27/24 15:05 Height 1.57 m Height Method Measured Weight 74.389 kg Weight Measurement Method Standing Scale BMI 30.2 BP 107/69 Blood Pressure Source Automatic Cuff Blood Pressure Location Right Upper Arm Position Sitting Respiration 17 Pulse 73 Pulse Source Monitor Temp 97.8 F Temp Source Temporal Artery Scan Pulse Oximetry (%) 98 Oxygen Delivery Method Room Air Allergies/Home Meds Allergies & Medications Allergies Penicillins Allergy (Severe, Verified 12/27/24 15:06) Rash Medication Reconciliation vitamin with calcium no.72-iron 27 mg-folic acid 1 mg tablet ( Vitamins Plus Low Iron) 1 tab PO QDAY 90 days #90 tabs 10/25/24 [Rx Confirmed 12/27/24] Intake Visit Data Collection New Patient or Established: Established Patient (seen at [facility] within 3 years) Reason for Visit:: OBC Consent obtained for Telemed Visit: No Seen by Clinical Staff ONLY (RN/MA): No Electrical Laboratory 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 1. Little interest or pleasure in doing things: not at all PHQ-9 8. Moving or speaking so slowly that other people could have noticed? - Or the opposite - being so fidgety or restless that you have been moving around a lot more than usual: not at all Source: Developed by Drs. Deniz Younger, Lubna Lynn, Jordy Adkins and colleagues, with an educational ja from [email or web address]. 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 Her last menstrual period was on June 02, 2024, but she notes having irregular cycles. Patient reports this as her worst so far, with significant weight loss, severe nausea, and inability to eat or drink. - Ultrasound examination revealed gestat ional age of 9 weeks and 0 days, with cardiac activity. - Adjusted estimated due date (JC) to N ovember 2024 based on ultrasound findings. - Perform comprehensive labs. - Offer genetic testing, including optio n for gender determination. - Schedule follow-up appointment in 2 we eks for repeat ultrasound. - Provide patient with ultrasound images . - Prescribe antiemetic medication. - Provide patient education on managemen t of nausea and vomiting in . - Monitor weight and nutritional status at follow-up visits. 10/25/24 -?-?-?-?-?-?-?-?-?-?-?-?- 12w 1d 74.559 kg 111/74 160 Vital Signs - Heart Rate: 158 bpm Physical Examination Abdomen: Fundal height consistent with 1 2 weeks gestation. Laboratory, Imaging, and Diagnostic Test Results - Hepatitis B: Negative - Hepatitis C: Negative - RPR: Non-reactive - Rubella: Immune - Blood group: O-positive - Antibody screen: Negative - HIV: Negative - Gonorrhea: Negative - Chlamydia: Negative - CBC: - Hemoglobin: 11.8 g/dL - Hematocrit: 35.9% - Platelets: 310 x10^3/?L - Urinalysis: - Appearance: Turbid - WBC esterase: 1+ - Ketones: Trace - Bacteria: Moderate - Culture: No growth - Maternity 21: - fraction: 18% - gender: Male - Aneuploidy testing: Negative - Ultrasound: - Gestational age: 12 weeks - heart rate: 158 bpm. Romelia Mendoza, G?P? at 12w1d, presents for routine visit following a recent ER visit for hyperemesis gravidarum. She reports vomiting with blood spots noted in the throat, managed in the ER with Zofran, which improved symptoms. She denies cramping or spotting. Currently not taking vitamins. Fundal height is consistent with gestational age. Labs show mild anemia (Hgb 11.8, Hct 35.9). Male fetus confirmed via genetic testing. Plan: Prescribe Zofran for ongoing nausea; pro vide refills Send prescription for vitamins to [facility] Encourage increased oral hydration and s mall, frequent meals Refer for 20-week anatomy ultrasound at [facility]?s (await scheduling [facility]) Follow up in 4 weeks Continue standard counseling and review warning sig ns of complications 11/22/24 -?-?-?-?-?-?-?-?-?-?-?-?- 16w 1d 74.049 kg 100/66 absent unknown 16 146 active No OB complaints, no leaking or bleeding AFP today, M FM appointment pending, discuss sab precaution. continue PNV, increase fluid, rtc 4 week 12/27/24 -?-?-?-?-?-?-?-?-?-?-?-?- 21w 1d 74.389 kg 107/69 absent unknown 20 145 active fetus active, no c/o PTL s/s. headache sometime. repeat MFM 6 week f/u mfm 6 week. fetus active. discuss PTL precaution. hydrate. rtc 4 week JC Calculator Estimated Delivery Date Method Current WG Current Estimate 05/08/25 Ultrasound #1 21w 1d Other Estimates 03/09/25 LMP (Uncertain) 29w 5d Notes Visit Date: 11/22/24 Last Updated by: Tash Salgado CNM 24 yo . lmp 06/02/24. edc 03/09/25. ob sono: 10/03/24: iup 9w. edc 05/08/25. no dates. O+,abs-,rpr;;nr, rub IM, HBSAG-,HC-,HIV-,GC/CT-, NIPT and carrier screen- Office Procedures OB Clinic LOC & Office Proc's Nursing/Assessment Patient Status: Established Patient OB Clinic Nursing Assessment: Medication Reconciliation, Update PMH in EMR and Vital Signs OB Clinic Coordination of Care: Complex Care and Chronic Disease 1-5, Consent,records obtained, informed consent, Education Simp Pt/Fam, Lab and Imaging orders and Staff clarify orders Special Needs: Heart tones Miscellaneous Interventions: Blood/Urine Collection Established Patient Charge Established Patient Point Assignment: 160 Established Patient Point Charge: EP Level 5 (160-above) Assessment & Plan Diagnosis / Problem List (1) Normal in multigravida in second trimester: Status: Acute Plan call for sono results, discuss ptl precaution, hydrate, increase protiein. mfm f/u 6 week. 3rd tri lab nv. rtc 4 week Additional Plan Follow Up: 4 Weeks (obc)
== END 2024-12-27 15:32 | disposition home or self-care (01) ==
LOC: HODSOBC 14:52
PROVIDERS: PCP Family Medicine; Referring Provider Family Medicine; Supervising Provider Advanced Practice Midwife; Visit Provider Advanced Practice Midwife
DX: Z34.82 Encounter for supervision of other normal pregnancy, second trimester (principal); Z3A.21 21 weeks gestation of pregnancy; Z88.0 Allergy status to penicillin
CPT/HCPCS: 99215; G0463

== ENCOUNTER 2025-01-24 14:25 | Outpatient (AMB) | payer MEDICAID, SELFPAY ==
[2025-01-24 14:30] VITALS: BP 108/66; PULSE 86; RESP 17; TEMP 36.5; O2SAT 98; BMI 30.2
--- NOTE | 2025-01-24 14:30 | OBCLNT_ITS ---
Vital Signs 01/24/25 14:30 Height 1.57 m Height Method Measured Weight 74.389 kg Weight Measurement Method Standing Scale BMI 30.2 BP 108/66 Blood Pressure Source Automatic Cuff Blood Pressure Location Right Upper Arm Position Sitting Respiration 17 Pulse 86 Pulse Source Monitor Temp 97.7 F Temp Source Temporal Artery Scan Pulse Oximetry (%) 98 Oxygen Delivery Method Room Air Allergies/Home Meds Allergies & Medications Allergies Penicillins Allergy (Severe, Verified 01/24/25 14:31) Rash Medication Reconciliation vitamins with calcium no.72-iron 27 mg-folic acid 1 mg tablet ( Vitamins Plus Low Iron) 1 tab PO QDAY 90 days #90 tabs 10/25/24 [Rx Confirmed 01/24/25] Intake Visit Data Collection New Patient or Established: Established Patient (seen at [facility] within 3 years) Reason for Visit:: OBC Consent obtained for Telemed Visit: No Seen by Clinical Staff ONLY (RN/MA): No 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 1. Little interest or pleasure in doing things: not at all PHQ-9 8. Moving or speaking so slowly that other people could have noticed? - Or the opposite - being so fidgety or restless that you have been moving around a lot more than usual: not at all Source: Developed by Drs. Deniz Younger, Lubna Lynn, Jordy Adkins and colleagues, with an educational ja from [employer]. 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 Her last menstrual period was on June 02, 2024, but she notes having irregular cycles. Patient reports this as her worst so far, with significant weight loss, severe nausea, and inability to eat or drink. - Ultrasound examination revealed gestat ional age of 9 weeks and 0 days, with cardiac activity. - Adjusted estimated due date (JC) to N ovember 2024 based on ultrasound findings. - Perform comprehensive labs. - Offer genetic testing, including optio n for gender determination. - Schedule follow-up appointment in 2 we eks for repeat ultrasound. - Provide patient with ultrasound images . - Prescribe antiemetic medication. - Provide patient education on managemen t of nausea and vomiting in . - Monitor weight and nutritional status at follow-up visits. 10/25/24 -?-?-?-?-?-?-?-?-?-?-?-?- 12w 1d 74.559 kg 111/74 160 Vital Signs - Heart Rate: 158 bpm Physical Examination Abdomen: Fundal height consistent with 1 2 weeks gestation. Laboratory, Imaging, and Diagnostic Test Results - Hepatitis B: Negative - Hepatitis C: Negative - RPR: Non-reactive - Rubella: Immune - Blood group: O-positive - Antibody screen: Negative - HIV: Negative - Gonorrhea: Negative - Chlamydia: Negative - CBC: - Hemoglobin: 11.8 g/dL - Hematocrit: 35.9% - Platelets: 310 x10^3/?L - Urinalysis: - Appearance: Turbid - WBC esterase: 1+ - Ketones: Trace - Bacteria: Moderate - Culture: No growth - Maternity 21: - fraction: 18% - gender: Male - Aneuploidy testing: Negative - Ultrasound: - Gestational age: 12 weeks - heart rate: 158 bpm. Romelia Mendoza, G?P? at 12w1d, presents for routine visit following a recent ER visit for hyperemesis gravidarum. She reports vomiting with blood spots noted in the throat, managed in the ER with Zofran, which improved symptoms. She denies cramping or spotting. Currently not taking vitamins. Fundal height is consistent with gestational age. Labs show mild anemia (Hgb 11.8, Hct 35.9). Male fetus confirmed via genetic testing. Plan: Prescribe Zofran for ongoing nausea; pro vide refills Send prescription for vitamins to [facility] Encourage increased oral hydration and s mall, frequent meals Refer for 20-week anatomy ultrasound at [facility]?s (await scheduling call) Follow up in 4 weeks Continue standard counseling and review warning sig ns of complications 11/22/24 -?-?-?-?-?-?-?-?-?-?-?-?- 16w 1d 74.049 kg 100/66 absent unknown 16 146 active No OB complaints, no leaking or bleeding AFP today, M appointment pending, discuss sab precaution. continue PNV, increase fluid, rtc 4 week 12/27/24 -?-?-?-?-?-?-?-?-?-?-?-?- 21w 1d 74.389 kg 107/69 absent unknown 20 145 active fetus active, no c/o PTL s/s. headache sometime. repeat MFM 6 week f/u mfm 6 week. fetus active. discuss PTL precaution. hydrate. rtc 4 week 01/24/25 -?-?-?-?-?-?-?-?-?-?-?-?- 25w 1d 74.389 kg 108/66 absent unknown 25 145 active headache and back pain. feels better today, fetus active. denies bleeding or leaking, fetus active 3rd tri lab toda y. f/u growth sonon 4-6 week. discuss diet and weight. ptl precaution, fluid, rtc 4 week JC Calculator Estimated Delivery Date Method Current WG Current Estimate 05/08/25 Ultrasound #1 25w 1d Other Estimates 03/09/25 LMP (Uncertain) 33w 5d 05/08/25 Ultrasound #2 25w 1d Notes Visit Date: 11/22/24 Last Updated by: Tash Salgado CNM 24 yo . lmp 06/02/24. edc 03/09/25. ob sono: 10/03/24: iup 9w. edc 05/08/25. no dates. O+,abs-,rpr;;nr, rub IM, HBSAG-,HC-,HIV-,GC/CT-, NIPT and carrier screen- Office Procedures OB Clinic LOC & Office Proc's Nursing/Assessment Patient Status: Established Patient OB Clinic Nursing Assessment: Medication Reconciliation, Update PMH in EMR and Vital Signs OB Clinic Coordination of Care: Complex Care and Chronic Disease 1-5, Consent,records obtained, informed consent, Education Simp Pt/Fam and 4+ Authorizations needed Special Needs: Heart tones Established Patient Charge Established Patient Point Assignment: 130 Established Patient Point Charge: EP Level 4 (120-155) Assessment & Plan Diagnosis / Problem List (1) Normal in multigravida in second trimester: Status: Acute Plan 3rd tri lab, discuss ptl precaution. hydrate. comfort measure for back ache and headache. f/u mfm 4-6 week. rtc 3 week Additional Plan Follow Up: 3 Weeks (obc)
== END 2025-01-24 15:11 | disposition home or self-care (01) ==
LOC: HODSOBC 14:25
PROVIDERS: PCP Family Medicine; Referring Provider Family Medicine; Supervising Provider Advanced Practice Midwife; Visit Provider Advanced Practice Midwife
DX: O09.892 Supervision of other high risk pregnancies, second trimester (principal); O99.891 Other specified diseases and conditions complicating pregnancy; M54.9 Dorsalgia, unspecified; R51.9 Headache, unspecified; Z3A.25 25 weeks gestation of pregnancy; Z88.0 Allergy status to penicillin
CPT/HCPCS: 99214; G0463

== ENCOUNTER 2025-03-01 08:37 | Outpatient (AMB) | payer MEDICAID, SELFPAY ==
[2025-03-01 11:14] VITALS: BP 105/65; PULSE 79; RESP 16; TEMP 36.2; O2SAT 98; BMI 30.4
--- NOTE | 2025-03-01 11:14 | OBCLNT_ITS ---
Vital Signs 03/01/25 11:14 Height 1.57 m Height Method Stated Weight 74.899 kg Weight Measurement Method Standing Scale BMI 30.4 BP 105/65 Blood Pressure Source Automatic Cuff Blood Pressure Location Left Upper Arm Position Sitting Respiration 16 Pulse 79 Pulse Source Monitor Temp 97.2 F Temp Source Oral Pulse Oximetry (%) 98 Oxygen Delivery Method Room Air Allergies/Home Meds Allergies & Medications Allergies Penicillins Allergy (Severe, Verified 03/01/25 11:15) Rash Medication Reconciliation vitamins with calcium no.72-iron 27 mg-folic acid 1 mg tablet ( Vitamins Plus Low Iron) 1 tab PO QDAY 90 days #90 tabs 10/25/24 [Rx Confirmed 03/01/25] ferrous sulfate 325 mg (65 mg iron) tablet 325 mg PO BID #60 tabs 02/27/25 [Rx Confirmed 03/01/25] Intake Visit Data Collection New Patient or Established: Established Patient (seen at [facility] within 3 years) Reason for Visit:: OBC Second Worker Required: No Do You Feel Safe at Home: Yes Authorities Contacted: N/A PCP or OBGYN visit in last 3 months: Yes Date of Last PCP or OBGYN visit: 03/01/25 Hx Now: Yes Are you currently on any form of Control: No Pain Present Currently: No Pain Scale Used: Prasad-Elaine/Numerical Pain scale:: 0 Smoking Status Smoking Status: Never smoker Questionnaires Covid-19 Vaccine Questionnaire Has patient been vacinated for Covid-19 Have you been vacinated for Covid-19: Yes PHQ-9 PHQ-2 Over the last 2 weeks, how often have you been bothered by any of the following problems? 1. Little interest or pleasure in doing things: not at all 2. Feeling down, depressed, or hopeless: not at all Total score: 0 PHQ-9 3. Trouble falling or staying asleep, or sleeping too much: Not at all 4. Feeling tired or having little energy: Not at all 5. Poor appetite or overeating: Not at all 6. Feeling bad about yourself - or that you are a failure or have let yourself or your family down: Not at all 8. Moving or speaking so slowly that other people could have noticed? - Or the opposite - being so fidgety or restless that you have been moving around a lot more than usual: not at all 9. Thoughts that you would be better off or of hurting yourself in some way: Not at all If you checked off any problems, how difficult have these problems made it for you to do your work, take care of things at home, or get along with other people?: not difficult at all Source: Developed by Drs. Deniz Younger, Lubna Lynn, Jordy Adkins and colleagues, with an educational ja from [employer]. 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 Her last menstrual period was on June 02, 2024, but she notes having irregular cycles. Patient reports this as her worst so far, with significant weight loss, severe nausea, and inability to eat or drink. - Ultrasound examination revealed gestat ional age of 9 weeks and 0 days, with cardiac activity. - Adjusted estimated due date (JC) to N ovember 2024 based on ultrasound findings. - Perform comprehensive labs. - Offer genetic testing, including optio n for gender determination. - Schedule follow-up appointment in 2 we eks for repeat ultrasound. - Provide patient with ultrasound images . - Prescribe antiemetic medication. - Provide patient education on managemen t of nausea and vomiting in . - Monitor weight and nutritional status at follow-up visits. 10/25/24 -?-?-?-?-?-?-?-?-?-?-?-?- 12w 1d 74.559 kg 111/74 160 Vital Signs - Heart Rate: 158 bpm Physical Examination Abdomen: Fundal height consistent with 1 2 weeks gestation. Laboratory, Imaging, and Diagnostic Test Results - Hepatitis B: Negative - Hepatitis C: Negative - RPR: Non-reactive - Rubella: Immune - Blood group: O-positive - Antibody screen: Negative - HIV: Negative - Gonorrhea: Negative - Chlamydia: Negative - CBC: - Hemoglobin: 11.8 g/dL - Hematocrit: 35.9% - Platelets: 310 x10^3/?L - Urinalysis: - Appearance: Turbid - WBC esterase: 1+ - Ketones: Trace - Bacteria: Moderate - Culture: No growth - Maternity 21: - fraction: 18% - gender: Male - Aneuploidy testing: Negative - Ultrasound: - Gestational age: 12 weeks - heart rate: 158 bpm. Woodrow Rodrigez?P? at 12w1d, presents for routine visit following a recent ER visit for hyperemesis gravidarum. She reports vomiting with blood spots noted in the throat, managed in the ER with Zofran, which improved symptoms. She denies cramping or spotting. Currently not taking vitamins. Fundal height is consistent with gestational age. Labs show mild anemia (Hgb 11.8, Hct 35.9). Male fetus confirmed via genetic testing. Plan: Prescribe Zofran for ongoing nausea; pro vide refills [facility] Encourage increased oral hydration and s mall, frequent meals Refer for 20-week anatomy ultrasound at [facility]?s (await scheduling call) Follow up in 4 weeks Continue standard counseling and review warning sig ns of complications 11/22/24 -?-?-?-?-?-?-?-?-?-?-?-?- 16w 1d 74.049 kg 100/66 absent unknown 16 146 active No OB complaints, no leaking or bleeding AFP today, M appointment pending, discuss sab precaution. continue PNV, increase fluid, rtc 4 week 12/27/24 -?-?-?-?-?-?-?-?-?-?-?-?- 21w 1d 74.389 kg 107/69 absent unknown 20 145 active fetus active, no c/o PTL s/s. headache sometime. repeat MFM 6 week f/u mfm 6 week. fetus active. discuss PTL precaution. hydrate. rtc 4 week 01/24/25 -?-?-?-?-?-?-?-?-?-?-?-?- 25w 1d 74.389 kg 108/66 absent unknown 25 145 active headache and back pain. feels better today, fetus active. denies bleeding or leaking, fetus active 3rd tri lab toda y. f/u growth sonon 4-6 week. discuss diet and weight. ptl precaution, fluid, rtc 4 week 03/01/25 -?-?-?-?-?-?-?-?-?-?-?-?- 30w 2d 74.899 kg 105/65 absent unknown 30 140 active Reports movement. Denies labor complaints. Denies leaking, bleeding, contractions. Fetus is active. Follow-up MFM March 02, 2025 Sono 03/02/25. 3-hour GTT. Discussed diet and weight. Increase activity. Discussed labor precautions. Return in 2 weeks OB check. Tdap today JC Calculator Estimated Delivery Date Method Current WG Current Estimate 05/08/25 Ultrasound #1 30w 2d Other Estimates 03/09/25 LMP (Uncertain) 38w 6d 05/08/25 Ultrasound #2 30w 2d Notes Visit Date: 03/01/25 Last Updated by: Tash Salgado CNM 1 hr gtt: 154,RPR::NR, A15.5 Visit Date: 11/22/24 Last Updated by: Tash Salgado CNM 24 yo . lmp 06/02/24. edc 03/09/25. ob sono: 10/03/24: iup 9w. edc 05/08/25. no dates. O+,abs-,rpr;;nr, rub IM, HBSAG-,HC-,HIV-,GC/CT-, NIPT and carrier screen- Office Procedures OB Clinic LOC & Office Proc's Nursing/Assessment Patient Status: Established Patient OB Clinic Nursing Assessment: Medication Reconciliation, Update PMH in EMR and Vital Signs OB Clinic Coordination of Care: Education Complex Pt/Fam, Consent,records obtained, informed consent, Lab and Imaging orders, Results/Orders obtained and Staff clarify orders Special Needs: Heart tones Established Patient Charge Established Patient Point Assignment: 115 Established Patient Point Charge: EP Level 3 (80-115) Immunizations diphth,pertus(acell),tetanus 2.5 Lf unit-8 mcg-5 Lf/0.5mL IM syringe Performing Provider: Tash Salgado CNM Performing Location: [facility] ANIMAL PHYSIOLOGIST Clinic Administered by: Frieda Cabral MA on 03/01/25 11:54 Dose Route Admin Location Dispensed Lot Number Expiration Date Pack age NDC 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 Schedule 3-hour GTT. Discussed labor precautions and kick count. Increase fluids. Maternal- medicine ultrasound tomorrow. Return in 2 weeks OB check Additional Plan Follow Up: 2 Weeks (obc)
== END 2025-03-01 11:13 | disposition home or self-care (01) ==
LOC: HODSOBC 08:37
PROVIDERS: Supervising Provider Advanced Practice Midwife; Visit Provider Advanced Practice Midwife
DX: Z34.83 Encounter for supervision of other normal pregnancy, third trimester (principal); Z3A.30 30 weeks gestation of pregnancy; Z23 Encounter for immunization; Z88.0 Allergy status to penicillin
CPT/HCPCS: 90471; 90715; 99213; G0463

== ENCOUNTER 2025-03-15 08:46 | Outpatient (AMB) | payer MEDICAID, SELFPAY ==
[2025-03-15 09:00] VITALS: BP 111/68; PULSE 94; RESP 18; TEMP 36.5; O2SAT 99; BMI 30.9
--- NOTE | 2025-03-15 09:00 | AMB.OBVISIT ---
Vital Signs 03/15/25 09:00 Height 1.57 m Height Method Stated Weight 76.204 kg Weight Measurement Method Standing Scale BMI 30.9 BP 111/68 Blood Pressure Source Automatic Cuff Blood Pressure Location Right Upper Arm Position Sitting Respiration 18 Pulse 94 Pulse Source Monitor Temp 97.7 F Temp Source Temporal Artery Scan Pulse Oximetry (%) 99 Oxygen Delivery Method Room Air Allergies/Home Meds Allergies & Medications Allergies Penicillins Allergy (Severe, Verified 03/01/25 11:15) Rash Intake Visit Data Collection New Patient or Established: Established Patient (seen at [facility] within 3 years) Reason for Visit:: OBC FOLLOW UP Do You Feel Safe at Home: Yes Authorities Contacted: N/A PCP or OBGYN visit in last 3 months: Yes Date of Last PCP or OBGYN visit: 03/01/25 Hx Now: Yes Smoking Status Smoking Status: Never smoker Questionnaires PHQ-9 PHQ-2 Over the last 2 weeks, how often have you been bothered by any of the following problems? 1. Little interest or pleasure in doing things: not at all PHQ-9 8. Moving or speaking so slowly that other people could have noticed? - Or the opposite - being so fidgety or restless that you have been moving around a lot more than usual: not at all Source: Developed by Drs. Deniz Younger, Lubna Lynn, Jordy Adkins and colleagues, with an educational ja from [employer]. 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 Her last menstrual period was on June 02, 2024, but she notes having irregular cycles. Patient reports this as her worst so far, with significant weight loss, severe nausea, and inability to eat or drink. - Ultrasound examination revealed gestational age of 9 weeks and 0 days, with cardiac activity. - Adjusted estimated due date (JC) to May 08, 2025 based on ultrasound findings. - Perform comprehensive labs. - Offer genetic testing, including option for gender determination. - Schedule follow-up appointment in 2 weeks for repeat ultrasound. - Provide patient with ultrasound images. - Prescribe antiemetic medication. - Provide patient education on management of nausea and vomiting in . - Monitor weight and nutritional status at follow-up visits. 10/25/24 <del>?</del> 12w 1d 74.559 kg 111/74 160 Vital Signs - Heart Rate: 158 bpm Physical Examination Abdomen: Fundal height consistent with 12 weeks gestation. Laboratory, Imaging, and Diagnostic Test Results - Hepatitis B: Negative - Hepatitis C: Negative - RPR: Non-reactive - Rubella: Immune - Blood group: O-positive - Antibody screen: Negative - HIV: Negative - Gonorrhea: Negative - Chlamydia: Negative - CBC: - Hemoglobin: 11.8 g/dL - Hematocrit: 35.9% - Platelets: 310 x10^3/?L - Urinalysis: - Appearance: Turbid - WBC esterase: 1+ - Ketones: Trace - Bacteria: Moderate - Culture: No growth - Maternity 21: - fraction: 18% - gender: Male - Aneuploidy testing: Negative - Ultrasound: - Gestational age: 12 weeks - heart rate: 158 bpm. Romeliapeter Mendoza, Woodrow?P? at 12w1d, presents for routine visit following a recent ER visit for hyperemesis gravidarum. She reports vomiting with blood spots noted in the throat, managed in the ER with Zofran, which improved symptoms. She denies cramping or spotting. Currently not taking vitamins. Fundal height is consistent with gestational age. Labs show mild anemia (Hgb 11.8, Hct 35.9). Male fetus confirmed via genetic testing. Plan: Prescribe Zofran for ongoing nausea; provide refills Send prescription for vitamins to [facility] Encourage increased oral hydration and small, frequent meals Refer for 20-week anatomy ultrasound at [facility]?s (await scheduling call) Follow up in 4 weeks Continue standard counseling and review warning signs of complications 11/22/24 <del>?</del> 16w 1d 74.049 kg 100/66 absent unknown 16 146 active No OB complaints, no leaking or bleeding AFP today, [facility] appointment pending, discuss sab precaution. continue PNV, increase fluid, rtc 4 week 12/27/24 <del>?</del> 21w 1d 74.389 kg 107/69 absent unknown 20 145 active fetus active, no c/o PTL s/s. headache sometime. repeat MFM 6 week f/u mfm 6 week. fetus active. discuss PTL precaution. hydrate. rtc 4 week 01/24/25 <del>?</del> 25w 1d 74.389 kg 108/66 absent unknown 25 145 active headache and back pain. feels better today, fetus active. denies bleeding or leaking, fetus active 3rd tri lab today. f/u growth sonon 4-6 week. discuss diet and weight. ptl precaution, fluid, rtc 4 week 03/01/25 <del>?</del> 30w 2d 74.899 kg 105/65 absent unknown 30 140 active Reports movement. Denies labor complaints. Denies leaking, bleeding, contractions. Fetus is active. Follow-up [facility] March 02, 2025 Sono 03/02/25. 3-hour GTT. Discussed diet and weight. Increase activity. Discussed labor precautions. Return in 2 weeks OB check. Tdap today 03/15/25 <del>?</del> 32w 2d 76.204 kg 111/68 absent cephalic 32 140 active Reports good movement. Denies any contractions. Denies leaking or bleeding. Follow-up ultrasound with [facility] April 10 Discussed 3-hour GTT. Keep appointment with [facility] April 10 for growth. Discussed labor precautions and kick count. Discussed labor. Return in 2 weeks OB check JC Calculator Estimated Delivery Date Method Current WG Current Estimate 05/08/25 Ultrasound #1 32w 2d Other Estimates 03/09/25 LMP (Uncertain) 40w 6d 05/08/25 Ultrasound #2 32w 2d Notes Visit Date: 03/15/25 Last Updated by: Tash Salgado CNM 3 hr gtt wnl/all values 03/06: sono: EFW 88%. IUP @31 week Visit Date: 03/01/25 Last Updated by: Tash Salgado CNM 1 hr gtt: 154,RPR::NR, A15.5 Visit Date: 11/22/24 Last Updated by: Tash Salgado CNM 24 yo . lmp 06/02/24. edc 03/09/25. ob sono: 10/03/24: iup 9w. edc 05/08/25. no dates. O+,abs-,rpr;;nr, rub IM, HBSAG-,HC-,HIV-,GC/CT-, NIPT and carrier screen- Office Procedures OBC Clinic LOC & Office Proc's Nursing/Assessment Patient Status: Established Patient OB Clinic Nursing Assessment: Medication Reconciliation, Update PMH in EMR and Vital Signs OB Clinic Coordination of Care: Complex Care and Chronic Disease 1-5, Education Complex Pt/Fam, Consent,records obtained, informed consent and Results/Orders obtained Special Needs: Heart tones Established Patient Charge Established Patient Point Assignment: 115 Established Patient Point Charge: EP Level 3 (80-115) Assessment & Plan Diagnosis / Problem List (1) Encounter for care in third trimester of first : Status: Acute Plan Follow-up sono April 10. Discussed labor precautions. Kick count. Increase fluids. Discussed 3-hour GTT results which were normal. Return in 2 weeks OB check Additional Plan Follow Up: 2 Weeks (OBC)
== END 2025-03-15 09:39 | disposition home or self-care (01) ==
LOC: HODSOBC 08:46
PROVIDERS: Supervising Provider Advanced Practice Midwife; Visit Provider Advanced Practice Midwife
DX: Z34.83 Encounter for supervision of other normal pregnancy, third trimester (principal); Z3A.32 32 weeks gestation of pregnancy; Z88.0 Allergy status to penicillin
CPT/HCPCS: 99213; G0463

== ENCOUNTER 2025-03-30 09:14 | Outpatient (AMB) | payer MEDICAID, SELFPAY ==
[2025-03-30 09:17] VITALS: BP 106/60; PULSE 74; RESP 17; TEMP 36.3; O2SAT 98; BMI 31.1
--- NOTE | 2025-03-30 09:17 | AMB.OBVISIT ---
Vital Signs 03/30/25 09:17 Height 1.57 m Height Method Stated Weight 76.884 kg Weight Measurement Method Standing Scale BMI 31.1 BP 106/60 Blood Pressure Source Automatic Cuff Blood Pressure Location Right Upper Arm Position Sitting Respiration 17 Pulse 74 Pulse Source Monitor Temp 97.4 F Temp Source Temporal Artery Scan Pulse Oximetry (%) 98 Oxygen Delivery Method Room Air Allergies/Home Meds Allergies & Medications Allergies Penicillins Allergy (Severe, Verified 03/30/25 09:21) Rash Medication Reconciliation vitamins with calcium no.72-iron 27 mg-folic acid 1 mg tablet ( Vitamins Plus Low Iron) 1 tab PO QDAY 90 days #90 tabs 10/25/24 [Rx Confirmed 03/30/25] Intake Visit Data Collection New Patient or Established: Established Patient (seen at [facility] within 3 years) Reason for Visit:: OBC Seen by Clinical Staff ONLY (RN/MA): 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 1. Little interest or pleasure in doing things: not at all 2. Feeling down, depressed, or hopeless: not at all Total score: 0 PHQ-9 3. Trouble falling or staying asleep, or sleeping too much: Not at all 4. Feeling tired or having little energy: Not at all 5. Poor appetite or overeating: Not at all 6. Feeling bad about yourself - or that you are a failure or have let yourself or your family down: Not at all 7. Trouble concentrating on things, such as reading the newspaper or watching television: Not at all 8. Moving or speaking so slowly that other people could have noticed? - Or the opposite - being so fidgety or restless that you have been moving around a lot more than usual: not at all 9. Thoughts that you would be better off or of hurting yourself in some way: Not at all Total score: 0 If you checked off any problems, how difficult have these problems made it for you to do your work, take care of things at home, or get along with other people?: not difficult at all Source: Developed by Drs. Deniz Younger, Lubna Lynn, Jordy Adkins and colleagues, with an educational ja from [employer]. 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 Her last menstrual period was on June 02, 2024, but she notes having irregular cycles. Patient reports this as her worst so far, with significant weight loss, severe nausea, and inability to eat or drink. - Ultrasound examination revealed gestational age of 9 weeks and 0 days, with cardiac activity. - Adjusted estimated due date (JC) to May 08, 2025 based on ultrasound findings. - Perform comprehensive labs. - Offer genetic testing, including option for gender determination. - Schedule follow-up appointment in 2 weeks for repeat ultrasound. - Provide patient with ultrasound images. - Prescribe antiemetic medication. - Provide patient education on management of nausea and vomiting in . - Monitor weight and nutritional status at follow-up visits. 10/25/24 <del>?</del> 12w 1d 74.559 kg 111/74 160 Vital Signs - Heart Rate: 158 bpm Physical Examination Abdomen: Fundal height consistent with 12 weeks gestation. Laboratory, Imaging, and Diagnostic Test Results - Hepatitis B: Negative - Hepatitis C: Negative - RPR: Non-reactive - Rubella: Immune - Blood group: O-positive - Antibody screen: Negative - HIV: Negative - Gonorrhea: Negative - Chlamydia: Negative - CBC: - Hemoglobin: 11.8 g/dL - Hematocrit: 35.9% - Platelets: 310 x10^3/?L - Urinalysis: - Appearance: Turbid - WBC esterase: 1+ - Ketones: Trace - Bacteria: Moderate - Culture: No growth - Maternity 21: - fraction: 18% - gender: Male - Aneuploidy testing: Negative - Ultrasound: - Gestational age: 12 weeks - heart rate: 158 bpm. Romelia Reji, G?P? at 12w1d, presents for routine visit following a recent ER visit for hyperemesis gravidarum. She reports vomiting with blood spots noted in the throat, managed in the ER with Zofran, which improved symptoms. She denies cramping or spotting. Currently not taking vitamins. Fundal height is consistent with gestational age. Labs show mild anemia (Hgb 11.8, Hct 35.9). Male fetus confirmed via genetic testing. Plan: Prescribe Zofran for ongoing nausea; provide refills Send prescription for vitamins to [facility] Encourage increased oral hydration and small, frequent meals Refer for 20-week anatomy ultrasound at [facility]?s (await scheduling call) Follow up in 4 weeks Continue standard counseling and review warning signs of complications 11/22/24 <del>?</del> 16w 1d 74.049 kg 100/66 absent unknown 16 146 active No OB complaints, no leaking or bleeding AFP today, MFM appointment pending, discuss sab precaution. continue PNV, increase fluid, rtc 4 week 12/27/24 <del>?</del> 21w 1d 74.389 kg 107/69 absent unknown 20 145 active fetus active, no c/o PTL s/s. headache sometime. repeat MFM 6 week f/u mfm 6 week. fetus active. discuss PTL precaution. hydrate. rtc 4 week 01/24/25 <del>?</del> 25w 1d 74.389 kg 108/66 absent unknown 25 145 active headache and back pain. feels better today, fetus active. denies bleeding or leaking, fetus active 3rd tri lab today. f/u growth sonon 4-6 week. discuss diet and weight. ptl precaution, fluid, rtc 4 week 03/01/25 <del>?</del> 30w 2d 74.899 kg 105/65 absent unknown 30 140 active Reports movement. Denies labor complaints. Denies leaking, bleeding, contractions. Fetus is active. Follow-up [facility] March 02, 2025 Sono 03/02/25. 3-hour GTT. Discussed diet and weight. Increase activity. Discussed labor precautions. Return in 2 weeks OB check. Tdap today 03/15/25 <del>?</del> 32w 2d 76.204 kg 111/68 absent cephalic 32 140 active Reports good movement. Denies any contractions. Denies leaking or bleeding. Follow-up ultrasound with [facility] April 10 Discussed 3-hour GTT. Keep appointment with [facility] April 10 for growth. Discussed labor precautions and kick count. Discussed labor. Return in 2 weeks OB check 03/30/25 <del>?</del> 34w 3d 76.884 kg 106/60 absent cephalic 34 145 active Reports good movement. Denies leaking, bleeding, contractions Keep follow-up maternal- medicine appointment for April 10. Discussed labor precautions kick count twice a day reviewed. And GBS next visit JC Calculator Estimated Delivery Date Method Current WG Current Estimate 05/08/25 Ultrasound #1 34w 3d Other Estimates 03/09/25 LMP (Uncertain) 43w 0d 05/08/25 Ultrasound #2 34w 3d Notes Visit Date: 03/15/25 Last Updated by: Tash Salgado CNM 3 hr gtt wnl/all values 03/06: sono: EFW 88%. IUP @31 week Visit Date: 03/01/25 Last Updated by: Tash Salgado CNM 1 hr gtt: 154,RPR::NR, A15.5 Visit Date: 11/22/24 Last Updated by: Tash Salgado CNM 24 yo . lmp 06/02/24. edc 03/09/25. ob sono: 10/03/24: iup 9w. edc 05/08/25. no dates. O+,abs-,rpr;;nr, rub IM, HBSAG-,HC-,HIV-,GC/CT-, NIPT and carrier screen- Office Procedures OBC Clinic LOC & Office Proc's Nursing/Assessment Patient Status: Established Patient OB Clinic Nursing Assessment: Medication Reconciliation, Update PMH in EMR and Vital Signs OB Clinic Coordination of Care: Complex Care and Chronic Disease 1-5, Education Complex Pt/Fam, Consent,records obtained, informed consent and Staff clarify orders Special Needs: Heart tones Established Patient Charge Established Patient Point Assignment: 120 Established Patient Point Charge: EP Level 4 (120-155) Assessment & Plan Diagnosis / Problem List (1) Encounter for care in third trimester of first : Status: Acute Plan GBS next visit. Return in 2 weeks. Discussed labor precautions. Reviewed kick count twice a day. Continue prenatals. And keep maternal medicine appointment April 10 Additional Plan Follow Up: 2 Weeks (obc)
== END 2025-03-30 09:45 | disposition home or self-care (01) ==
LOC: HODSOBC 09:14
PROVIDERS: Supervising Provider Advanced Practice Midwife; Visit Provider Advanced Practice Midwife
DX: Z34.83 Encounter for supervision of other normal pregnancy, third trimester (principal); Z3A.34 34 weeks gestation of pregnancy
CPT/HCPCS: 99214; G0463

== ENCOUNTER 2025-04-14 09:12 | Outpatient (AMB) | payer MEDICAID, SELFPAY ==
[2025-04-14 10:11] VITALS: BP 125/79; PULSE 91; RESP 18; TEMP 36.6; O2SAT 98; BMI 31.3
--- NOTE | 2025-04-14 10:11 | OBCLNT_ITS ---
Vital Signs 04/14/25 10:11 Height 1.57 m Height Method Stated Weight 77.281 kg Weight Measurement Method Standing Scale BMI 31.3 BP 125/79 Blood Pressure Source Automatic Cuff Blood Pressure Location Left Upper Arm Position Sitting Respiration 18 Pulse 91 Pulse Source Monitor Temp 97.8 F Temp Source Oral Pulse Oximetry (%) 98 Oxygen Delivery Method Room Air Allergies/Home Meds Allergies & Medications Allergies Penicillins Allergy (Severe, Verified 04/14/25 10:12) Rash Medication Reconciliation vitamins with calcium no.72-iron 27 mg-folic acid 1 mg tablet ( Vitamins Plus Low Iron) 1 tab PO QDAY 90 days #90 tabs 10/25/24 [Rx Confirmed 04/14/25] ursodiol 250 mg tablet 250 mg PO BID #60 tabs 04/14/25 [Rx] Intake Visit Data Collection New Patient or Established: Established Patient (seen at [facility] within 3 years) Reason for Visit:: CARE Seen by Clinical Staff ONLY (RN/MA): No Napkin Band Wrapper Required: No Do You Feel Safe at Home: Yes Authorities Contacted: N/A PCP or OBGYN visit in last 3 months: Yes Hx Now: Yes Are you currently on any form of Control: No Pain Present Currently: No Pain Scale Used: Prasad-Elaine/Numerical Pain scale:: 0 Smoking Status Smoking Status: Never smoker Immunizations Flu Vaccine in the Last 12 Months: No Flu Vaccine Exclusion Criteria: No Exclusion Criteria Questionnaires Covid-19 Vaccine Questionnaire Has patient been vacinated for Covid-19 Have you been vacinated for Covid-19: Yes PHQ-9 PHQ-2 Over the last 2 weeks, how often have you been bothered by any of the following problems? 1. Little interest or pleasure in doing things: not at all 2. Feeling down, depressed, or hopeless: not at all Total score: 0 PHQ-9 3. Trouble falling or staying asleep, or sleeping too much: Not at all 4. Feeling tired or having little energy: Not at all 5. Poor appetite or overeating: Not at all 6. Feeling bad about yourself - or that you are a failure or have let yourself or your family down: Not at all 7. Trouble concentrating on things, such as reading the newspaper or watching television: Not at all 8. Moving or speaking so slowly that other people could have noticed? - Or the opposite - being so fidgety or restless that you have been moving around a lot more than usual: not at all 9. Thoughts that you would be better off or of hurting yourself in some way: Not at all Total score: 0 Source: Developed by Drs. Deniz Younger, Lubna Lynn, Jordy Adkins and colleagues, with an educational ja from [employer] 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 Her last menstrual period was on June 02, 2024, but she notes having irregular cycles. Patient reports this as her worst so far, with significant weight loss, severe nausea, and inability to eat or drink. - Ultrasound examination revealed gestat ional age of 9 weeks and 0 days, with cardiac activity. - Adjusted estimated due date (JC) to N ovember 2024 based on ultrasound findings. - Perform comprehensive labs. - Offer genetic testing, including optio n for gender determination. - Schedule follow-up appointment in 2 we eks for repeat ultrasound. - Provide patient with ultrasound images . - Prescribe antiemetic medication. - Provide patient education on managemen t of nausea and vomiting in . - Monitor weight and nutritional status at follow-up visits. 10/25/24 -?-?-?-?-?-?-?-?-?-?-?-?- 12w 1d 74.559 kg 111/74 160 Vital Signs - Heart Rate: 158 bpm Physical Examination Abdomen: Fundal height consistent with 1 2 weeks gestation. Laboratory, Imaging, and Diagnostic Test Results - Hepatitis B: Negative - Hepatitis C: Negative - RPR: Non-reactive - Rubella: Immune - Blood group: O-positive - Antibody screen: Negative - HIV: Negative - Gonorrhea: Negative - Chlamydia: Negative - CBC: - Hemoglobin: 11.8 g/dL - Hematocrit: 35.9% - Platelets: 310 x10^3/?L - Urinalysis: - Appearance: Turbid - WBC esterase: 1+ - Ketones: Trace - Bacteria: Moderate - Culture: No growth - Maternity 21: - fraction: 18% - gender: Male - Aneuploidy testing: Negative - Ultrasound: - Gestational age: 12 weeks - heart rate: 158 bpm. Romelia Mendoza, G?P? at 12w1d, presents for routine visit following a recent ER visit for hyperemesis gravidarum. She reports vomiting with blood spots noted in the throat, managed in the ER with Zofran, which improved symptoms. She denies cramping or spotting. Currently not taking vitamins. Fundal height is consistent with gestational age. Labs show mild anemia (Hgb 11.8, Hct 35.9). Male fetus confirmed via genetic testing. Plan: Prescribe Zofran for ongoing nausea; pro vide refills [facility] Encourage increased oral hydration and s mall, frequent meals Refer for 20-week anatomy ultrasound at [facility]s (await scheduling call) Follow up in 4 weeks Continue standard counseling and review warning sig ns of complications 11/22/24 -?-?-?-?-?-?-?-?-?-?-?-?- 16w 1d 74.049 kg 100/66 absent unknown 16 146 active No OB complaints, no leaking or bleeding AFP today, M appointment pending, discuss sab precaution. continue PNV, increase fluid, rtc 4 week 12/27/24 -?-?-?-?-?-?-?-?-?-?-?-?- 21w 1d 74.389 kg 107/69 absent unknown 20 145 active fetus active, no c/o PTL s/s. headache sometime. repeat MFM 6 week f/u mfm 6 week. fetus active. discuss PTL precaution. hydrate. rtc 4 week 01/24/25 -?-?-?-?-?-?-?-?-?-?-?-?- 25w 1d 74.389 kg 108/66 absent unknown 25 145 active headache and back pain. feels better today, fetus active. denies bleeding or leaking, fetus active 3rd tri lab toda y. f/u growth sonon 4-6 week. discuss diet and weight. ptl precaution, fluid, rtc 4 week 03/01/25 -?-?-?-?-?-?-?-?-?-?-?-?- 30w 2d 74.899 kg 105/65 absent unknown 30 140 active Reports movement. Denies labor complaints. Denies leaking, bleeding, contractions. Fetus is active. Follow-up [facility] March 02, 2025 Sono 03/02/25. 3-hour GTT. Discussed diet and weight. Increase activity. Discussed labor precautions. Return in 2 weeks OB check. Tdap today 03/15/25 -?-?-?-?-?-?-?-?-?-?-?-?- 32w 2d 76.204 kg 111/68 absent cephalic 32 140 active Reports good movement. Denies any contractions. Denies leaking or bleeding. Follow-up ultrasound with [facility] April 10 Discussed 3-hour GTT. Keep appointment with [facility] April 10 for growth. Discussed labor precautions and kick count. Discussed labor. Return in 2 weeks OB check 03/30/25 -?-?-?-?-?-?-?-?-?-?-?-?- 34w 3d 76.884 kg 106/60 absent cephalic 34 145 active Reports good movement. Denies leaking, bleeding, contractions Keep follow-up maternal- medicine appointment for April 10. Discussed labor precautions kick count twice a day reviewed. And GBS next visit 04/14/25 -?-?-?-?-?-?-?-?-?-?-?-?- 36w 4d 77.281 kg 125/79 absent cephalic 36 145 active reports good movement, denies leaking,bleeding. no uc. c/o yellow discharge Kick count twice a day. I did a NuSwab for vaginitis and GBS. Discussed labor precautions and ER precautions. Continue prenatals. And return in a week OB check JC Calculator Estimated Delivery Date Method Current WG Current Estimate 05/08/25 Ultrasound #1 36w 4d Other Estimates 03/09/25 LMP (Uncertain) 45w 1d 05/08/25 Ultrasound #2 36w 4d 05/08/25 Manual 36w 4d final jc ;; Notes Visit Date: 03/15/25 Last Updated by: Tash Salgado CNM 3 hr gtt wnl/all values 03/06: sono: EFW 88%. IUP @31 week Visit Date: 03/01/25 Last Updated by: Tash Salgado CNM 1 hr gtt: 154,RPR::NR, A15.5 Visit Date: 11/22/24 Last Updated by: Tash Salgado CNM 24 yo . lmp 06/02/24. edc 03/09/25. ob sono: 10/03/24: iup 9w. edc 05/08/25. no dates. O+,abs-,rpr;;nr, rub IM, HBSAG-,HC-,HIV-,GC/CT-, NIPT and carrier screen- Office Procedures OBC Clinic LOC & Office Proc's Nursing/Assessment Patient Status: Established Patient OB Clinic Nursing Assessment: Medication Reconciliation, Update PMH in EMR and Vital Signs OB Clinic Coordination of Care: Complex Care and Chronic Disease 1-5, Consent,records obtained, informed consent, Education Simp Pt/Fam, 1 Ins Authorization, Lab and Imaging orders, Results/Orders obtained and Staff clarify orders Special Needs: Heart tones Miscellaneous Interventions: Culture Specimen Collection Established Patient Charge Established Patient Point Assignment: 165 Established Patient Point Charge: EP Level 5 (160-above) Assessment & Plan Diagnosis / Problem List (1) Encounter for care in third trimester of first : Status: Acute (2) Vaginitis: Status: Acute Qualifiers: Chronicity: acute Qualified Code(s): N76.0 - Acute vaginitis Plan NuSwab and GBS today. Discussed labor precautions. Reviewed kick count with patient. Increase fluids continue prenatals and return in a week OB check Additional Plan Follow Up: 1 Week (obc)
== END 2025-04-14 10:46 | disposition home or self-care (01) ==
LOC: HODSOBC 09:12
PROVIDERS: Supervising Provider Advanced Practice Midwife; Visit Provider Advanced Practice Midwife
DX: O09.893 Supervision of other high risk pregnancies, third trimester (principal); O23.593 Infection of other part of genital tract in pregnancy, third trimester; N76.0 Acute vaginitis; Z3A.36 36 weeks gestation of pregnancy; Z88.0 Allergy status to penicillin
CPT/HCPCS: 99215; G0463

== ENCOUNTER 2025-04-19 15:19 | Outpatient (AMB) | payer MEDICAID, SELFPAY ==
[2025-04-19 15:25] VITALS: BP 116/72; PULSE 80; RESP 18; TEMP 36.2; O2SAT 98; BMI 31.5
--- NOTE | 2025-04-19 15:25 | AMB.OBVISIT ---
Vital Signs 04/19/25 15:25 Height 1.57 m Height Method Stated Weight 77.734 kg Weight Measurement Method Standing Scale BMI 31.5 BP 116/72 Blood Pressure Source Automatic Cuff Blood Pressure Location Left Upper Arm Position Standing Respiration 18 Pulse 80 Pulse Source Monitor Temp 97.2 F Temp Source Oral Pulse Oximetry (%) 98 Oxygen Delivery Method Room Air Allergies/Home Meds Allergies & Medications Allergies Penicillins Allergy (Severe, Verified 04/19/25 15:26) Rash Medication Reconciliation vitamins with calcium no.72-iron 27 mg-folic acid 1 mg tablet ( Vitamins Plus Low Iron) 1 tab PO QDAY 90 days #90 tabs 10/25/24 [Rx Confirmed 04/19/25] ursodiol 250 mg tablet 250 mg PO BID #60 tabs 04/14/25 [Rx Confirmed 04/19/25] Intake Visit Data Collection New Patient or Established: Established Patient (seen at [facility] within 3 years) Reason for Visit:: OBC Seen by Clinical Staff ONLY (RN/MA): No P 3 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: No Do You Feel Safe at Home: Yes Authorities Contacted: N/A PCP or OBGYN visit in last 3 months: Yes Date of Last PCP or OBGYN visit: 04/14/25 Hx Now: Yes Are you currently on any form of Control: No Pain Present Currently: No Pain Scale Used: Prasad-Elaine/Numerical Pain scale:: 0 Smoking Status Smoking Status: Never smoker Immunizations Flu Vaccine in the Last 12 Months: Yes Flu Vaccine Exclusion Criteria: No Exclusion Criteria Questionnaires Covid-19 Vaccine Questionnaire Has patient been vacinated for Covid-19 Have you been vacinated for Covid-19: Yes PHQ-9 PHQ-2 Over the last 2 weeks, how often have you been bothered by any of the following problems? 1. Little interest or pleasure in doing things: not at all 2. Feeling down, depressed, or hopeless: not at all Total score: 0 PHQ-9 3. Trouble falling or staying asleep, or sleeping too much: Not at all 4. Feeling tired or having little energy: Not at all 5. Poor appetite or overeating: Not at all 6. Feeling bad about yourself - or that you are a failure or have let yourself or your family down: Not at all 7. Trouble concentrating on things, such as reading the newspaper or watching television: Not at all 8. Moving or speaking so slowly that other people could have noticed? - Or the opposite - being so fidgety or restless that you have been moving around a lot more than usual: not at all 9. Thoughts that you would be better off or of hurting yourself in some way: Not at all Total score: 0 Source: Developed by Drs. Deniz Younger, Lubna Lynn, Jordy Adkins and colleagues, with an educational ja from [employer]. 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 Her last menstrual period was on June 02, 2024, but she notes having irregular cycles. Patient reports this as her worst so far, with significant weight loss, severe nausea, and inability to eat or drink. - Ultrasound examination revealed gestational age of 9 weeks and 0 days, with cardiac activity. - Adjusted estimated due date (JC) to May 08, 2025 based on ultrasound findings. - Perform comprehensive labs. - Offer genetic testing, including option for gender determination. - Schedule follow-up appointment in 2 weeks for repeat ultrasound. - Provide patient with ultrasound images. - Prescribe antiemetic medication. - Provide patient education on management of nausea and vomiting in . - Monitor weight and nutritional status at follow-up visits. 10/25/24 <del>?</del> 12w 1d 74.559 kg 111/74 160 Vital Signs - Heart Rate: 158 bpm Physical Examination Abdomen: Fundal height consistent with 12 weeks gestation. Laboratory, Imaging, and Diagnostic Test Results - Hepatitis B: Negative - Hepatitis C: Negative - RPR: Non-reactive - Rubella: Immune - Blood group: O-positive - Antibody screen: Negative - HIV: Negative - Gonorrhea: Negative - Chlamydia: Negative - CBC: - Hemoglobin: 11.8 g/dL - Hematocrit: 35.9% - Platelets: 310 x10^3/?L - Urinalysis: - Appearance: Turbid - WBC esterase: 1+ - Ketones: Trace - Bacteria: Moderate - Culture: No growth - Maternity 21: - fraction: 18% - gender: Male - Aneuploidy testing: Negative - Ultrasound: - Gestational age: 12 weeks - heart rate: 158 bpm. RomeliaWoodrow Olsen?P? at 12w1d, presents for routine visit following a recent ER visit for hyperemesis gravidarum. She reports vomiting with blood spots noted in the throat, managed in the ER with Zofran, which improved symptoms. She denies cramping or spotting. Currently not taking vitamins. Fundal height is consistent with gestational age. Labs show mild anemia (Hgb 11.8, Hct 35.9). Male fetus confirmed via genetic testing. Plan: Prescribe Zofran for ongoing nausea; provide refills [facility] Encourage increased oral hydration and small, frequent meals Refer for 20-week anatomy ultrasound at [facility]?s (await scheduling call) Follow up in 4 weeks Continue standard counseling and review warning signs of complications 11/22/24 <del>?</del> 16w 1d 74.049 kg 100/66 absent unknown 16 146 active No OB complaints, no leaking or bleeding AFP today, MFM appointment pending, discuss sab precaution. continue PNV, increase fluid, rtc 4 week 12/27/24 <del>?</del> 21w 1d 74.389 kg 107/69 absent unknown 20 145 active fetus active, no c/o PTL s/s. headache sometime. repeat MFM 6 week f/u mfm 6 week. fetus active. discuss PTL precaution. hydrate. rtc 4 week 01/24/25 <del>?</del> 25w 1d 74.389 kg 108/66 absent unknown 25 145 active headache and back pain. feels better today, fetus active. denies bleeding or leaking, fetus active 3rd tri lab today. f/u growth sonon 4-6 week. discuss diet and weight. ptl precaution, fluid, rtc 4 week 03/01/25 <del>?</del> 30w 2d 74.899 kg 105/65 absent unknown 30 140 active Reports movement. Denies labor complaints. Denies leaking, bleeding, contractions. Fetus is active. Follow-up [facility] March 02, 2025 Sono 03/02/25. 3-hour GTT. Discussed diet and weight. Increase activity. Discussed labor precautions. Return in 2 weeks OB check. Tdap today 03/15/25 <del>?</del> 32w 2d 76.204 kg 111/68 absent cephalic 32 140 active Reports good movement. Denies any contractions. Denies leaking or bleeding. Follow-up ultrasound with [facility] April 10 Discussed 3-hour GTT. Keep appointment with [facility] April 10 for growth. Discussed labor precautions and kick count. Discussed labor. Return in 2 weeks OB check 03/30/25 <del>?</del> 34w 3d 76.884 kg 106/60 absent cephalic 34 145 active Reports good movement. Denies leaking, bleeding, contractions Keep follow-up maternal- medicine appointment for April 10. Discussed labor precautions kick count twice a day reviewed. And GBS next visit 04/14/25 <del>?</del> 36w 4d 77.281 kg 125/79 absent cephalic 36 145 active reports good movement, denies leaking,bleeding. no uc. c/o yellow discharge Kick count twice a day. I did a NuSwab for vaginitis and GBS. Discussed labor precautions and ER precautions. Continue prenatals. And return in a week OB check 04/19/25 <del>?</del> 37w 2d 77.734 kg 116/72 occasional cephalic 37 145 active 1.5 -3 25 itchy over body, needs to P/U Ursodiol. GBS/nuswab-, CMP: wnl, Bili total: wnl, Bile acid: 24.7, OCC uc, no VB or leaking, report good FM NST/BPP today, review fkc bid. patient to P/u Ursodiol and start. IOL 04/26/25. RTC 6 days. discuss labor precaution JC Calculator Estimated Delivery Date Method Current WG Current Estimate 05/08/25 Ultrasound #1 37w 2d Other Estimates 03/09/25 LMP (Uncertain) 45w 6d 05/08/25 Ultrasound #2 37w 2d 05/08/25 Manual 37w 2d final jc ;;05/08/25 Notes Visit Date: 04/19/25 Last Updated by: Tash Salgado CNM 04/19: GBS-, Nuswab_. Bile acid: 24.7, Bili and CMP wnl Visit Date: 03/15/25 Last Updated by: Tash Salgado CNM 3 hr gtt wnl/all values 03/06: sono: EFW 88%. IUP @31 week Visit Date: 03/01/25 Last Updated by: Tash Salgado CNM 1 hr gtt: 154,RPR::NR, A15.5 Visit Date: 11/22/24 Last Updated by: Tash Salgado CNM 24 yo . lmp 06/02/24. edc 03/09/25. ob sono: 10/03/24: iup 9w. edc 05/08/25. no dates. O+,abs-,rpr;;nr, rub IM, HBSAG-,HC-,HIV-,GC/CT-, NIPT and carrier screen- Office Procedures OBC Clinic LOC & Office Proc's Nursing/Assessment Patient Status: Established Patient OB Clinic Nursing Assessment: Medication Reconciliation, Update PMH in EMR and Vital Signs OB Clinic Coordination of Care: Consent,records obtained, informed consent, Education Simp Pt/Fam, Lab and Imaging orders, Results/Orders obtained and Staff clarify orders Special Needs: Heart tones Established Patient Charge Established Patient Point Assignment: 110 Established Patient Point Charge: EP Level 3 (80-115) Assessment & Plan Diagnosis / Problem List (1) Encounter for care in third trimester of first : Status: Acute Plan supervising producer ursodiol and start it. Discussed labs. Schedule induction of labor for April 26, 2025. NST BPP uzma. Discussed labor precautions and kick count. Return in 6 days for OB check Additional Plan Follow Up: 6 Days (obc)
== END 2025-04-19 15:57 | disposition home or self-care (01) ==
LOC: HODSOBC 15:19
PROVIDERS: Supervising Provider Advanced Practice Midwife; Visit Provider Advanced Practice Midwife
DX: O09.893 Supervision of other high risk pregnancies, third trimester (principal); O26.893 Other specified pregnancy related conditions, third trimester; L29.9 Pruritus, unspecified; Z3A.37 37 weeks gestation of pregnancy; Z88.0 Allergy status to penicillin
CPT/HCPCS: 99213; G0463

== ENCOUNTER 2025-04-19 17:39 | Outpatient (CLI) | payer MEDICAID, SELFPAY ==
--- NOTE | 2025-04-19 17:49 | XR_ITS ---
Examination: Biophysical profile, ultrasound Date and time of exam: April 19, 2025, 1750 hours INDICATIONS: Diagnosis cholestasis of Technique: Multiple transabdominal sonographic images of the pelvis abdomen obtained. Attention is directed to the breathing movement, gross body movement, amniotic fluid volume and tone. Findings: Amniotic fluid index 5.0 cm Total biophysical profile is 8 of 8. breathing movement is 2. Gross body movement is 2. tone is 2. Qualitative amniotic fluid volume is 2 Impression: Biophysical profile is 8 of 8.
[2025-04-19 18:20] VITALS: BP 115/65; PULSE 81; RESP 16; TEMP 36.7; TEMP 36.9; BMI 30.2
--- NOTE | 2025-04-19 20:21 | PD.EVENT ---
Documentation for date of: 04/19/25 Event Note Event Note: Patient's 24-year-old G3, P2 at 37+ weeks who presented for an NST LEONA for cholestasis. care is with Tash Salgado CNM. NST was reactive however, the LEONA was 5. The patient is scheduled for an induction of labor at 38 weeks for cholestasis on 04/26/2025. The plan will be to send the patient home, and have her come back the first thing in the morning for repeat NST and LEONA. If the baby still has borderline oligohydramnios, the plan will likely be to admit the patient and induce her labor. This was explained in detail to the patient prior to discharge from triage.
== END 2025-04-19 19:50 | disposition home or self-care (01) ==
LOC: S4S1 19:52 → S4NX 21:09 → S4SX 04-20 08:50
PROVIDERS: Referring Provider Obstetrics & Gynecology; Visit Provider Advanced Practice Midwife
DX: O26.643 Intrahepatic cholestasis of pregnancy, third trimester (principal); Z3A.38 38 weeks gestation of pregnancy
CPT/HCPCS: 59025; 76819

== ENCOUNTER 2025-04-20 09:25 | Outpatient (CLI) | payer MEDICAID, SELFPAY ==
[2025-04-20 09:31] VITALS: BP 118/68; PULSE 93
--- NOTE | 2025-04-20 09:35 | XR_ITS ---
Examination: Biophysical profile, ultrasound Date and time of exam: April 20, 2025, 1020 hours INDICATIONS: Diagnosis cholestasis of Technique: Multiple transabdominal sonographic images of the pelvis abdomen obtained. Attention is directed to the breathing movement, gross body movement, amniotic fluid volume and tone. Findings: Amniotic fluid index 10.0 cm Total biophysical profile is 8 of 8. breathing movement is 2. Gross body movement is 2. tone is 2. Qualitative amniotic fluid volume is 2 Impression: Biophysical profile is 8 of 8.
[2025-04-20 09:37] VITALS: BP 118/68; PULSE 93; RESP 16; RESP 99; TEMP 36.8; BMI 30.2
[2025-04-20 09:38] VITALS: RESP 16; TEMP 36.8; O2SAT 99
== END 2025-04-20 11:58 | disposition home or self-care (01) ==
LOC: S4S1 09:29 → S4SX 09:29
PROVIDERS: Referring Provider Advanced Practice Midwife; Visit Provider Advanced Practice Midwife
DX: O26.643 Intrahepatic cholestasis of pregnancy, third trimester (principal); Z3A.37 37 weeks gestation of pregnancy
CPT/HCPCS: 59025; 76819

== ENCOUNTER 2025-04-24 10:56 | Observation (INO) | payer MEDICAID, SELFPAY ==
[2025-04-24] VITALS (11 sets, daily range): BP systolic 123; BP diastolic 73; PULSE 85–109; RESP 18–99; TEMP 36.6; O2SAT 98–99; BMI 30.2
== END 2025-04-24 13:45 | disposition home or self-care (01) ==
PROVIDERS: Admitting Provider Advanced Practice Midwife; Visit Provider Advanced Practice Midwife
DX: O47.1 False labor at or after 37 completed weeks of gestation (principal); Z3A.38 38 weeks gestation of pregnancy
CPT/HCPCS: 59025; 59899

== ENCOUNTER 2025-04-24 20:18 | Inpatient (IN) | payer MEDICAID, SELFPAY ==
[2025-04-24] VITALS (12 sets, daily range): BP systolic 120–129; BP diastolic 62–65; PULSE 82–92; RESP 18–94; TEMP 36.8; O2SAT 93–96; BMI 30.8
[2025-04-24] MEDS: RINGERS LACTATED 1000 ML 1,000 ML 999 ML IV (22:59)
[2025-04-24] MEDS: RINGERS LACTATED 1000 ML 1,000 ML 100 ML IV (23:58)
[2025-04-25] VITALS (103 sets, daily range): BP systolic 78–129; BP diastolic 37–84; PULSE 24–120; RESP 16–18; TEMP 36.3–37.2; O2SAT 42–100
[2025-04-25 00:43] LABS: Basophils # (Auto) 0.1 Thou/mm3 (0.0-0.2); Basophils % (Auto) 1 % (0-2.5); Eosinophils # (Auto) 0.1 Thou/mm3 (0.0-0.5); Eosinophils % (Auto) 1 % (0-10); Hematocrit 27.9 % (36.0-46.0); Hemoglobin 9.1 g/dL (12.0-16.0); Immature Granulocytes Auto 0.04 Thou/mm3 (0.00-0.00); Lymphocytes # (Auto) 1.6 Thou/mm3 (1.0-4.8); Lymphocytes % (Auto) 16 % (10-50); Mean Corpuscular HGB Conc 32.6 g/dl (31.0-37.0); Mean Corpuscular Hemoglobin 25.1 pg (25.0-35.0); Mean Corpuscular Volume 77 fL (80-100); Monocytes # (Auto) 0.6 Thou/mm3 (0.0-0.8); Monocytes % (Auto) 5 % (0-12); Neutrophils # (Auto) 8.0 Thou/mm3 (1.8-7.7); Neutrophils % (Auto) 77 % (37-80); Nucleated Red Blood Cell # 0.00 Thou/mm3 (0.00-0.00); Nucleated Red Blood Cell % 0 /100 WBC (0); Platelet Count 296 Thou/mm3 (140-440); RDW Standard Deviation 40.0 fL (36.4-46.3); Red Blood Count 3.62 Miln/mm3 (4.00-5.20); White Blood Count 10.3 Thou/mm3 (3.6-11.0)
[2025-04-25 01:19] LABS: Syphilis Nonreactive (Nonreactive)
[2025-04-25] MEDS: RINGERS LACTATED 1000 ML 1,000 ML 100 ML IV (01:50)
[2025-04-25] MEDS: OXYTOCIN in NS 30 units 30 UNIT/500 ML BAG IV (04:45)
[2025-04-25] MEDS: MINERAL OIL 30 ML UDC TOP (06:07)
[2025-04-25] MEDS: TRANEXAMIC ACID 1,000 MG IVPB 1,000 MG/100 ML BAG 200 MG IV (06:19)
[2025-04-25] MEDS: OXYTOCIN INJ 10 UNIT/ML VIAL IM (06:34)
[2025-04-25] MEDS: OXYTOCIN in NS 20 units 20 UNIT/1,000 ML BAG 125 UNIT IV (06:35)
[2025-04-25] MEDS: BENZO/LANO/ALOE (Dermoplast) 60 GM CAN 1 SPRAY TOP (06:45)
--- NOTE | 2025-04-25 06:52 | ESHP_ITS ---
Documentation for date of: 04/25/25 OB Labor/Induct. HPI History of Present Illness Chief complaint: labor : 4 Para: 2 Term pregnancies: 2 pregnancies: 0 Living children: 2 History of Abortions: Spontaneous and Elective: 1 History of Vaginal deliveries: 2 History of sections: No History of : No Date of last menstrual period: 06/02/24 JC: 05/08/25 Gestational Age (weeks): 38 Gestational Age (days): 1 Gestational age based on last menstrual period: 46 History of present illness: 24-year-old 4 para 2 admit to labor and delivery with complaints of contractions that got stronger 8 at night. Patient has been followed at [facility] OB clinic for care. Her is going on current complicated except for cholestasis since the last week of the . Her last. June 02, 2024. Her EDC May 08, 2025. Patient is a positive, screen negative, RPR nonreactive, rubella, hepatitis B negative, hep C negative, HIV negative, GC and Chlamydia were negative. She had a negative NIPT and carrier screen. Her 1 hour GTT was normal. And GBS negative. Patient denies leaking or bleeding today and reports movement and contractions about every 3 to 4 minutes and is History of Present Dating criteria: LMP confirmed by 1st trimester US Adequate Care: Yes Ultrasounds: normal 1st trimester US and normal mid trimester US Obstetrical complications: other (cholestasis) Labs Labs: Positive: Rubella Titre, Negative: RPR, Hepatitis B, HIV, Chlamydia, Gonorrhea and Group Beta Strep and Unknown: Herpes Type 1, Herpes Type 2 and Covid-19 Review of Systems Review of Systems Systems Reviewed: All systems reviewed, normal except as documented Past Medical History Surgical History SURGICAL: Negative Section Meds Home Medications and Allergies Allergies Allergy/AdvReac Type Severity Reaction Status Date / Time Penicillins Allergy Severe Rash Verified 04/24/25 20:32 OB Exam Physical Exam Vital signs: Temp Pulse Resp BP Pulse Ox O2 Del Method 99.0 F 88 16 112/55 L 42 L Room Air 04/25/25 04:52 04/25/25 06:50 04/25/25 04:52 04/25/25 06:50 04/25/25 06:35 04/25/25 00:33 Narrative: Alert and oriented. Normal heart rate and rhythm. Lungs clear no wheezes. Gravid abdomen. Gynecoid pelvis. Vital signs are stable febrile. Vaginal exam on admission was 3, 80, -2. Vertex. heart rate category 1 with accelerations and moderate variability. Contractions about every 4 to 5 minutes and moderate. Bag water intact Detailed Labor and Delivery Exam Dilation (cm): 3 Effacement (%): 80 Cervix position: mid station: -2 Consistency: soft Presentation: Vertex Cervical ripeness score: 8 Membranes: intact Baseline heart rate: 145 monitor accelerations: 15x15 monitor decelerations: None [facility] variability: Moderate (11-25) Contraction frequency (min): 4-5 Contraction duration (sec): 40 Tachysystole: No Contraction intensity: Moderate OB Results Labs 04/24/25 22:40 Labs: Short CBC 04/24/25 Range/Units 22:40 WBC 10.3 (3.6-11.0) Thou/mm3 Hgb 9.1 L (12.0-16.0) g/dL Hct 27.9 L (36.0-46.0) % Plt Count 296 (140-440) Thou/mm3 OB Assessment & Plan Assessment and Plan (1) Normal labor and delivery: Status: Acute Additional Plan Induction method: per pitocin protocol Plan: augmentation, anticipate NVD and consult MD boudreaux
--- NOTE | 2025-04-25 06:57 | OBDSUM_ITS ---
Data (Thompson) Data Hx Section: No : 4 Term: 2 : 0 Livin Abortions: Spontaneous & Theraputic: 1 Delivery Data (Thompson) Labor Data Initiation of labor: Augmentation Induction/Augmentation Agent: Pitocin ROM date: 04/25/25 ROM time: 06:06 Amniotic membrane rupture type: Spontaneous Amniotic fluid description: Clear Delivery Data EDC: 05/08/25 EDC calculated by:: LMP/early US confirmation Date of arrival to unit: 04/24/25 Time of arrival to unit: 23:19 Onset of labor date: 04/25/25 Onset of labor time: 00:53 Complete dilation date: 04/25/25 Complete dilation time: 05:42 [place] delivery date: 04/25/25 delivery time: 06:14 Gestational age (weeks): 38 Gestational age (days): 1 Placenta delivery date: 04/25/25 Placenta delivery time: 06:19 Stage 1 total time: Labor - Stage 1 Duration 4 hours and 49 minutes Delivered by: Tash Salgado Delivery nurse: Virgil Ludwig nurse: Kimberley Tyler RN Finished Goods Stock Clerk at delivery: No Support person(s) at delivery: FOB Delivery Method Delivery method: Normal Vaginal Delivery Presentation: Vertex position: OA Anesthesia Type Anesthesia Type: None Delivery Room Medications Delivery room medications: Pitocin 10 u IM, Pitocin 20 u IV, Cytotec 800 SC and other (txa) Placenta Placenta delivery description: Spontaneous (intact, inspected) Cord blood sent to lab: Yes cord blood collection: Cord Blood Type Episiotomy Episiotomy description: None EBL Estimated blood loss (ml): 350 Umbilical Cord cord description: 3 Vessels and Nuchal Cord (x1) [place] Data ([place]pson) [place] Data order: 1 's gender: Male weight (gms): 3335 g Weight (pounds): 7 lbs and 5.6 ozs 1 minute: 8 5 minutes: 9
--- NOTE | 2025-04-25 07:53 | PC.NURSE ---
04/25/25 RN precepting Samantha Almonte RN, review and agree with Labor progress assessment.
[2025-04-25] MEDS: DOCUSATE SOD 100 MG CAPSULE PO ×2 (09:52→20:28)
[2025-04-25 15:36] LABS: Basophils # (Auto) 0.1 Thou/mm3 (0.0-0.2); Basophils % (Auto) 1 % (0-2.5); Eosinophils # (Auto) 0.1 Thou/mm3 (0.0-0.5); Eosinophils % (Auto) 1 % (0-10); Lymphocytes # (Auto) 1.7 Thou/mm3 (1.0-4.8); Mean Corpuscular Volume 77 fL (80-100); Monocytes # (Auto) 0.9 Thou/mm3 (0.0-0.8); Monocytes % (Auto) 8 % (0-12); Neutrophils % (Auto) 75 % (37-80); Nucleated Red Blood Cell # 0.00 Thou/mm3 (0.00-0.00); Nucleated Red Blood Cell % 0 /100 WBC (0)
[2025-04-25 15:37] LABS: Hematocrit 26.6 % (36.0-46.0); Immature Granulocytes Auto 0.03 Thou/mm3 (0.00-0.00); Lymphocytes % (Auto) 16 % (10-50); Mean Corpuscular HGB Conc 32.7 g/dl (31.0-37.0); Mean Corpuscular Hemoglobin 25.2 pg (25.0-35.0); Neutrophils # (Auto) 8.2 Thou/mm3 (1.8-7.7); Platelet Count 242 Thou/mm3 (140-440); RDW Standard Deviation 39.9 fL (36.4-46.3); Red Blood Count 3.45 Miln/mm3 (4.00-5.20); White Blood Count 10.9 Thou/mm3 (3.6-11.0)
[2025-04-25 15:38] LABS: Hemoglobin 8.7 g/dL (12.0-16.0)
[2025-04-26] VITALS: BP 104/62; PULSE 76; RESP 16; TEMP 36.7; O2SAT 95
--- NOTE | 2025-04-26 01:13 | ESPR_ITS ---
Subjective Subjective Interval history: No complaints of pain. No dizziness. Bonding breast Exam Vital Signs Temp Pulse Resp BP Pulse Ox O2 Del Method 98.1 F 76 16 104/62 95 Room Air 04/26/25 00:00 04/26/25 00:00 04/26/25 00:00 04/26/25 00:00 04/26/25 00:00 04/26/25 00:00 Narrative Exam Vital signs stable afebrile. Breast with soft. Fundus firm below umbilicus. Perineum intact with swelling. Small lochia. Uterus well involuted. 2+ DTRs. Negative Homans' sign Objective Labs 04/25/25 15:08 Labs: Laboratory Results - last 24 hr 04/24/25 04/25/25 22:40 15:08 WBC 10.9 RBC 3.45 L Hgb 8.7 L Hct 26.6 L MCV 77 L MCH 25.2 MCHC 32.7 RDW Std Deviation 39.9 Plt Count 242 D Neut % (Auto) 75 Lymph % (Auto) 16 [place] % (Auto) 8 Eos % (Auto) 1 Baso % (Auto) 1 Neut # (Auto) 8.2 H Lymph # (Auto) 1.7 [place] # (Auto) 0.9 H Eos # (Auto) 0.1 Baso # (Auto) 0.1 Immature Gran # (Auto) 0.03 H Absolute Nucleated RBC 0.00 Immature Gran % 0 Nucleated RBC % 0 Syphilis Serology Nonreactive Blood Type O Positive Antibody Screen NEGATIVE Blood Bank Wristband ID Yes Assessment & Plan Problem List (1) Normal labor and delivery: Status: Acute Assessment Comment Assessment comment: 24 hr pp Plan Comment Plan Comment: Discharge home with baby. Continue vitamins and iron. Tylenol ibuprofen for pain. Danger signs. Discussed ER precautions with parameters. Signs symptoms of infection. Return in 3 weeks visit Time Spent With Patient Time: Total time spent is greater than 50% in coordination of care (as documented) at patient's floor/unit and/or counseling patient:
--- NOTE | 2025-04-26 01:14 | ESDS_ITS ---
DS: Providers Provider Date of admission: 04/24/25 23:19 Primary care physician: Physician No Primary/Family Admitting Provider: Tash Salgado CNM Attending Provider on Admission: Tash Salgado CNM Consults: 04/25/25 07:08 Referral Routine Comment: Attending Provider on DC: Tash Salgado CNM Discharging Provider: Tash Salgado CNM DS: Diagnosis Problem List Completed Was Problem List Reviewed/Reconciled?: Yes Summary/Hosp Course Brief History: 24-year-old 4 para 2 admit to labor and delivery with complaints of contractions that got stronger 8 at night. Patient has been followed at [facility] OB clinic for care. Her is going on current complicated except for cholestasis since the last week of the . Her last. June 02, 2024. Her EDC May 08, 2025. Patient is a positive, screen negative, RPR nonreactive, rubella, hepatitis B negative, hep C negative, HIV negative, GC and Chlamydia were negative. She had a negative NIPT and carrier screen. Her 1 hour GTT was normal. And GBS negative. Patient denies leaking or bleeding today and reports movement and contractions about every 3 to 4 minutes and is Peripartum Data Delivery Method: Normal Vaginal Delivery Episiotomy Description: None Laceration Description: no complications: none Time Spent with Patient Time attestation: Total time spent providing and/or coordinating discharge services: Exam Vital Signs Temp Pulse Resp BP Pulse Ox O2 Del Method 98.1 F 76 16 104/62 95 Room Air 04/26/25 00:00 04/26/25 00:00 04/26/25 00:00 04/26/25 00:00 04/26/25 00:00 04/26/25 00:00 Discharge Plan Plan Patient Disposition: HOME (Self Care) Patient condition on transfer: Stable Prescriptions/Referrals Prescriptions/Med Rec: New PNV [id number] 90 mg iron- 1 mg-200 mg capsule 1 cap PO QDAY Qty: 60 2RF No Action Vitamin Plus Low Iron 27 mg iron- 1 mg tablet 1 tab PO QDAY 90 Days Qty: 90 6RF Referrals: No Primary/Family,Physician [Primary Care Provider] Patient/Caregiver Discharge Instructions Meds to Beds: No Discharge Activity: resume usual activities Print Language: Slovak Activity Restrictions/Additional Instructions: Child with vitamins. Tylenol or ibuprofen for pain. Reviewed danger signs symptoms and ER precautions. Reviewed signs symptoms of infection. Return in 3 weeks visit. And discharged home with baby Stand Alone Forms: Deb Award Info., Patient Portal Info Letter Discharge Order Discharge Orders: Discharge (Routine); Ordered 04/26/25 Ordered By: Tash Salgado Planned Discharge Date 04/26/25
[2025-04-26 04:06] VITALS: BP 104/62; PULSE 76; RESP 16; TEMP 36.7; O2SAT 95
[2025-04-26 08:00] VITALS: BP 108/70; PULSE 78; RESP 16; TEMP 36.8; O2SAT 95
[2025-04-26] MEDS: DOCUSATE SOD 100 MG CAPSULE PO (09:03)
== END 2025-04-26 12:55 | disposition home or self-care (01) | DRG 560 ==
LOC: S4SX 04-25 08:03 → S4NX 04-25 08:36
PROVIDERS: Admitting Provider Advanced Practice Midwife; Visit Provider Advanced Practice Midwife
DX: O26.643 Intrahepatic cholestasis of pregnancy, third trimester (principal); Z37.0 Single live birth; Z3A.38 38 weeks gestation of pregnancy; O69.81X0 Labor and delivery complicated by cord around neck, without compression, not applicable or unspecified; Z88.0 Allergy status to penicillin
CPT/HCPCS: 36415; 59025; 59409; 85025; 86780; 86850; 86900; 86901; 94762; J2590; J3490; J7120; S0191; A9270

== ENCOUNTER 2025-05-22 09:32 | Outpatient (AMB) | payer MEDICAID, SELFPAY ==
--- NOTE | 2025-05-22 09:46 | AMBOBPPN_ITS ---
Vital Signs 05/22/25 09:47 Height 1.6 m Height Method Stated Weight 72.121 kg Weight Measurement Method Standing Scale BMI 28.1 BP 107/64 Blood Pressure Source Automatic Cuff Blood Pressure Location Right Upper Arm Position Sitting Respiration 18 Pulse 74 Pulse Source Monitor Temp 97.7 F Temp Source Temporal Artery Scan Pulse Oximetry (%) 96 Oxygen Delivery Method Room Air Allergies/Home Meds Allergies & Medications Allergies Penicillins Allergy (Severe, Verified 05/22/25 09:48) Rash Medication Reconciliation vitamins with calcium no.72-iron 27 mg-folic acid 1 mg tablet ( Vitamins Plus Low Iron) 1 tab PO QDAY 90 days #90 tabs 10/25/24 [Rx Confirmed 05/22/25] vitamins no.102-iron 90 mg-folate 1 mg-dha 200 mg capsule 1 cap PO QDAY #60 caps 04/26/25 [Rx Confirmed 05/22/25] Intake Visit Data Collection New Patient or Established: Established Patient (seen at [facility] within 3 years) Reason for Visit:: Seen by Clinical Staff ONLY (RN/MA): No Airline Stewardess Required: No Do You Feel Safe at Home: Yes Authorities Contacted: N/A PCP or OBGYN visit in last 3 months: Yes Date of Last PCP or OBGYN visit: 04/24/25 Hx Now: No Are you currently on any form of Control: No Pain Present Currently: No Pain Scale Used: Prasad-Elaine/Numerical Pain scale:: 0 Smoking Status Smoking Status: Never smoker Immunizations Flu Vaccine in the Last 12 Months: No Flu Vaccine Exclusion Criteria: No Exclusion Criteria [employer]CH[employer]IC: Past Medical History Past Medical History: No Hx Neurological Disorders, No Hx Breast Cancer, No Hx Cardiac Disorders, No Hx Hypertension, No Hx Cancer, No Hx Blood Disorders, Yes Hx Anemia (With ), No Hx Gastrointestinal Disorders, No Hx Renal Disease, No Hx Diabetes Mellitus Type 1 and No Hx Diabetes Mellitus Type 2 Questionnaires Covid-19 Vaccine Questionnaire Has patient been vacinated for Covid-19 Have you been vacinated for Covid-19: No Social History Living Situation History Marital Status: Lives With: Family Housing: House Tobacco History Smoking Status: Never smoker Second Hand Smoke Exposure: No Alcohol History Alcohol Intake: Never Domestic Abuse History Do You Feel Safe at Home: Yes EPDS - PP Depression Screening Stuart Pospartum Depression Screen I have been able to laugh and see the funny side of things: (0) As much as I always could I have looked forward with enjoyment to things: (0) As much as I ever did I have blamed myself unnecessarily when things went wrong: (0) No, never I have been anxious or worried for no good reason: (0) No, not at all Things have been getting on top of me: (0) No, I have been coping as well as ever I have been so unhappy that I have had difficulty sleeping: (0) No, not at all I have felt sad or miserable: (0) No, not at all I have been so unhappy that I have been crying: (0) No, never The thought of harming myself has occurred to me: (0) Never EPDS completed yes Care OB Visit Log OB Flowsheet Initial Weight: Not Recorded Date -?-?-?-?-?-?-?-?-?-?-?-?- EGA Weight BP Alb Glu CTX Pres Fundal ht FHR Mov Dilation Station Effacement Hx Notes Visit Note 10/03/24 -?-?-?-?-?-?-?-?-?-?-?-?- 9w 0d 76.827 kg 121/79 175 Patient is a 3 para 2 presenting to establish care. Her last menstrual period was on June 02, 2024, but she notes having irregular cycles. Patient reports this as her worst so far, with significant weight loss, severe nausea, and inability to eat or drink. - Ultrasound examination revealed gestat ional age of 9 weeks and 0 days, with f etal cardiac activity. - Adjusted estimated due date (JC) to N ovember 2024 based on ultrasound findings. - Perform comprehensive labs. - Offer genetic testing, including optio n for gender determination. - Schedule follow-up appointment in 2 we eks for repeat ultrasound. - Provide patient with ultrasound images . - Prescribe antiemetic medication. - Provide patient education on managemen t of nausea and vomiting in . - Monitor weight and nutritional status at follow-up visits. 10/25/24 -?-?-?-?-?-?-?-?-?-?-?-?- 12w 1d 74.559 kg 111/74 160 Vital Signs - Heart Rate: 158 bpm Physical Examination Abdomen: Fundal height consistent with 1 2 weeks gestation. Laboratory, Imaging, and Diagnostic Test Results - Hepatitis B: Negative - Hepatitis C: Negative - RPR: Non-reactive - Rubella: Immune - Blood group: O-positive - Antibody screen: Negative - HIV: Negative - Gonorrhea: Negative - Chlamydia: Negative - CBC: - Hemoglobin: 11.8 g/dL - Hematocrit: 35.9% - Platelets: 310 x10^3/?L - Urinalysis: - Appearance: Turbid - WBC esterase: 1+ - Ketones: Trace - Bacteria: Moderate - Culture: No growth - Maternity 21: - fraction: 18% - gender: Male - Aneuploidy testing: Negative - Ultrasound: - Gestational age: 12 weeks - heart rate: 158 bpm. Romelia Woodrow Mendoza?P? at 12w1d, presents for routine visit following a recent ER visit for hyperemesis gravidarum. She reports vomiting with blood spots noted in the throat, managed in the ER with Zofran, which improved symptoms. She denies cramping or spotting. Currently not taking vitamins. Fundal height is consistent with gestational age. Labs show mild anemia (Hgb 11.8, Hct 35.9). Male fetus confirmed via genetic testing. Plan: Prescribe Zofran for ongoing nausea; pro vide refills Send prescription for vitamins to [facility] Encourage increased oral hydration and s mall, frequent meals Refer for 20-week anatomy ultrasound at [facility]?s (await scheduling call) Follow up in 4 weeks Continue standard counseling and review warning sig ns of complications 11/22/24 -?-?-?-?-?-?-?-?-?-?-?-?- 16w 1d 74.049 kg 100/66 absent unknown 16 146 active No OB complaints, no leaking or bleeding AFP today, M FM appointment pending, discuss sab precaution. continue PNV, increase fluid, rtc 4 week 12/27/24 -?-?-?-?-?-?-?-?-?-?-?-?- 21w 1d 74.389 kg 107/69 absent unknown 20 145 active fetus active, no c/o PTL s/s. headache sometime. repeat MFM 6 week f/u mfm 6 week. fetus active. discuss PTL precaution. hydrate. rtc 4 week 01/24/25 -?-?-?-?-?-?-?-?-?-?-?-?- 25w 1d 74.389 kg 108/66 absent unknown 25 145 active headache and back pain. feels better today, fetus active. denies bleeding or leaking, fetus active 3rd tri lab toda y. f/u growth sonon 4-6 week. discuss diet and weight. ptl precaution, fluid, rtc 4 week 03/01/25 -?-?-?-?-?-?-?-?-?-?-?-?- 30w 2d 74.899 kg 105/65 absent unknown 30 140 active Reports movement. Denies labor complaints. Denies leaking, bleeding, contractions. Fetus is active. Follow-up [facility] March 02, 2025 Sono 03/02/25. 3-hour GTT. Discussed diet and weight. Increase activity. Discussed labor precautions. Return in 2 weeks OB check. Tdap today 03/15/25 -?-?-?-?-?-?-?-?-?-?-?-?- 32w 2d 76.204 kg 111/68 absent cephalic 32 140 active Reports good movement. Denies any contractions. Denies leaking or bleeding. Follow-up ultrasound with [facility] April 10 Discussed 3-hour GTT. Keep appointment with [facility] April 10 for growth. Discussed labor precautions and kick count. Discussed labor. Return in 2 weeks OB check 03/30/25 -?-?-?-?-?-?-?-?-?-?-?-?- 34w 3d 76.884 kg 106/60 absent cephalic 34 145 active Reports good movement. Denies leaking, bleeding, contractions Keep follow-up maternal- medicine appointment for April 10. Discussed labor precautions kick count twice a day reviewed. And GBS next visit 04/14/25 -?-?-?-?-?-?-?-?-?-?-?-?- 36w 4d 77.281 kg 125/79 absent cephalic 36 145 active reports good movement, denies leaking,bleeding. no uc. c/o yellow discharge Kick count twice a day. I did a NuSwab for vaginitis and GBS. Discussed labor precautions and ER precautions. Continue prenatals. And return in a week OB check 04/19/25 -?-?-?-?-?-?-?-?-?-?-?-?- 37w 2d 77.734 kg 116/72 occasional cephalic 37 145 active 1.5 -3 25 itchy over body, needs to P/U Ursodiol. GBS/nuswab-, CMP: wnl, Bili total: wnl, Bile acid: 24.7, OCC uc, no VB or leaking, report good FM NST/BPP today, review fkc bid. patient to P/u Ursodiol and start. IOL 04/26/25. RTC 6 days. discuss labor precaution JC Calculator Estimated Delivery Date Method Current WG Current Estimate 05/08/25 Ultrasound #1 42w 0d Other Estimates 03/09/25 LMP (Uncertain) 50w 4d 05/08/25 Ultrasound #2 42w 0d 05/08/25 Manual 42w 0d final jc ;; Notes Visit Date: 04/19/25 Last Updated by: Tash Gaines CNM 04/19: GBS-, Nuswab_. Bile acid: 24.7, Bili and CMP wnl Visit Date: 03/15/25 Last Updated by: Tash Gaines CNM 3 hr gtt wnl/all values 03/06: sono: EFW 88%. IUP @31 week Visit Date: 03/01/25 Last Updated by: Tash Gaines CNM 1 hr gtt: 154,RPR::NR, A15.5 Visit Date: 11/22/24 Last Updated by: Tash Gaines CNM 24 yo . lmp 06/02/24. edc 03/09/25. ob sono: 10/03/24: iup 9w. edc 05/08/25. no dates. O+,abs-,rpr;;nr, rub IM, HBSAG-,HC-,HIV-,GC/CT-, NIPT and carrier screen- HPI Interval History: 24-year-old 4 para 3 for 4-week . Patient had a vaginal April 25, 2025. Baby boy weighing 7 pounds 5. She is bottlefeeding. Patient reports that she was a little sad the first week and now she feels happy and she denies any depression. Patient was induced at 38 weeks for cholestasis. She has good help at home and the father baby is involved.. Siblings are adjusting. And patient's not sure what she wants to use for control Was or delivery considered high risk: Yes Delivery type: vaginal Was labor induced: yes Gestational age at delivery (weeks): 38.1 Delivery date: 04/25/25 Delivering provider: carol gaines Delivery complications: No Is patient infant: No Is patient sexually active: No Contraception planned: unsure Review of Systems Review of Systems ROS limited to current [employer] complaints: Yes Exam Narrative Physical exam: Normal heart rate and rhythm. Lungs clear no wheezes. Abdomen is soft nontender. Uterus well involuted. Perineum is intact no lacerations. No swelling. Small lochia. Negative Homans' sign. 2+ DTRs. No edema no swelling. Breasts are soft Office Procedures OBC Clinic LOC & Office Proc's Nursing/Assessment Patient Status: Established Patient OB Clinic Nursing Assessment: Medication Reconciliation, Update PMH in EMR and Vital Signs OB Clinic Coordination of Care: Complex Care and Chronic Disease 1-5, Education Complex Pt/Fam, Consent,records obtained, informed consent, Results/Orders obtained and Staff clarify orders Special Needs: Heart tones Established Patient Charge Established Patient Point Assignment: 125 Established Patient Point Charge: EP Level 4 (120-155) Assessment & Plan Diagnosis / Problem List (1) Encounter for visit: Status: Acute Plan No sex. Discussed control options. Continue vitamins. Tylenol or ibuprofen for pain. Increase fluids. Okay to walk and be active. Discussed diet. Return in 3 weeks for control options and Pap smear Care Reviewed delivery summary and any complications: Yes Uterus involuted to: 3 below Perineal / incision healing noted: Yes Screened for depression: Yes Depression counseling provided: No Discussed family planning & contraception: Yes Contraception planned: unsure Counseling on safe resumption of sexual activity: Yes Counseling on gradual excercise: Yes Discussed and concerns (describe), provided support: No Referred to improvement specialist: No Counseled on good nutrition, hydration, and self care: Yes Reviewed vaccine status: Yes Chronic & current problems reconciled on problem list: Yes Infant care discussed; questions answered: feeding Follow up: routine/prn Additional counseling & anticipatory guidance provided: rtc 3 week pap
[2025-05-22 09:47] VITALS: BP 107/64; PULSE 74; RESP 18; TEMP 36.5; O2SAT 96; BMI 28.1
== END 2025-05-22 09:58 | disposition home or self-care (01) ==
LOC: HODSOBC 09:32
PROVIDERS: Supervising Provider Advanced Practice Midwife; Visit Provider Advanced Practice Midwife
DX: Z39.2 Encounter for routine postpartum follow-up (principal); Z88.0 Allergy status to penicillin
CPT/HCPCS: 99214; G0463

== ENCOUNTER 2025-06-20 10:19 | Outpatient (AMB) | payer MEDICAID, SELFPAY ==
[2025-06-20 10:46] VITALS: BP 99/52; PULSE 72; RESP 18; TEMP 36.3; O2SAT 99; BMI 29.2
--- NOTE | 2025-06-20 10:46 | GYNCLNT_ITS ---
Vital Signs 06/20/25 10:46 Height 1.6 m Height Method Stated Weight 74.956 kg Weight Measurement Method Standing Scale BMI 29.2 BP 99/52 L Blood Pressure Source Automatic Cuff Blood Pressure Location Right Upper Arm Position Sitting Respiration 18 Pulse 72 Pulse Source Monitor Temp 97.3 F Temp Source Temporal Artery Scan Pulse Oximetry (%) 99 Oxygen Delivery Method Room Air Allergies/Home Meds Allergies & Medications Allergies Penicillins Allergy (Severe, Verified 06/20/25 10:47) Rash Medication Reconciliation vitamins with calcium no.72-iron 27 mg-folic acid 1 mg tablet ( Vitamins Plus Low Iron) 1 tab PO QDAY 90 days #90 tabs 10/25/24 [Rx Confirmed 06/20/25] vitamins no.102-iron 90 mg-folate 1 mg-dha 200 mg capsule 1 cap PO QDAY #60 caps 04/26/25 [Rx Confirmed 06/20/25] desogestrel 0.15 mg-ethinyl estradiol 0.03 mg tablet (Enskyce) 1 tab PO QDAY #84 tabs 06/20/25 [Rx] Intake Visit Data Collection New Patient or Established: Established Patient (seen at 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 1. Little interest or pleasure in doing things: not at all 2. Feeling down, depressed, or hopeless: not at all Total score: 0 PHQ-9 3. Trouble falling or staying asleep, or sleeping too much: Not at all 4. Feeling tired or having little energy: Not at all 5. Poor appetite or overeating: Not at all 6. Feeling bad about yourself - or that you are a failure or have let yourself or your family down: Not at all 7. Trouble concentrating on things, such as reading the newspaper or watching television: Not at all 8. Moving or speaking so slowly that other people could have noticed? - Or the opposite - being so fidgety or restless that you have been moving around a lot more than usual: not at all 9. Thoughts that you would be better off or of hurting yourself in some way: Not at all Total score: 0 If you checked off any problems, how difficult have these problems made it for you to do your work, take care of things at home, or get along with other people?: not difficult at all Source: Developed by Drs. Deniz Younger, Lubna Lynn, Jordy Adkins and colleagues, with an educational ja from [employer]. Depression screen completed yes Social History Living Situation History Marital Status: Lives With: Family Housing: House Tobacco History Smoking Status: Never smoker Second Hand Smoke Exposure: No Alcohol History Alcohol Intake: Never Domestic Abuse History Do You Feel Safe at Home: Yes History of Present Illness HPI Narrative 24-year-old 4 para 3 for BUSINESS SUPPORT exam. Patient is 8 weeks . She has not had a period yet she did bottlefeed for 3 weeks. Denies social habits. Denies surgery. Denies chronic illness. Patient had sex a week ago unprotected. She would like to start on control pills. She used pills in the past and was happy with the method. Review of Systems Review of Systems Systems Reviewed: All systems reviewed, normal except as documented Exam Narrative Physical exam: Euthyroid. Both breast symmetrical. Soft and nontender. No masses. Abdomen soft. Nontender. Perineum clean no lesions noted. Vagina is pink with good muscle tone. Clear discharge. Parous cervix. No signs of inflammation. No lesions. Uterus normal shot size and shape. Mobile and nontender. And adnexa was normal Results Objective Laboratory: neg preg test Office Procedures [facility] LOC & Office Proc's Nursing/Assessment Patient Status: Established Patient OB Clinic Nursing Assessment: Medication Reconciliation, Update PMH in EMR and Vital Signs OB Clinic Coordination of Care: Complex Care and Chronic Disease 1-5, Education Complex Pt/Fam, Consent,records obtained, informed consent, Lab and Imaging orders, Results/Orders obtained and Staff clarify orders Miscellaneous Interventions: Blood/Urine Collection and Pelvic/Pap Smear Set up Established Patient Charge Established Patient Point Assignment: 160 Established Patient Point Charge: EP Level 5 (160-above) In Clinic Bedside tests/procedures Bedside HCG: Yes Results Urine HCG Urine HCG Negative Last Edit by Kassandra Hoff MA on 06/20/25 10:5 9 Assessment & Plan Diagnosis / Problem List (1) Encounter for refill of prescription for contraception: Status: Acute (2) Cervical smear, as part of routine gynecological examination: Status: Acute Plan Pap today. Discussed self breast exam. Discussed regular diet and exercise. Continue prenatals. Prescription for Enskyce x 12. Start today. Condoms for 2 weeks. Review method and side effects and compliance. Return in a year for for control refill. Additional Plan Follow Up: 1 Year (pill refill) DIRECTOR IMAGING: Papsmear Pap Smear Procedure Pre-op diagnosis general: pap Post-op diagnosis procedure note: Same Chaparone in room during procedure?: No Procedure position: lithotomy (dorsal) Speculum inserted, cervix visualized: Yes (Parous cervix. ) Cervical appearance: normal Collection method: broom type device Specimen placed in liquid-based cytology medium: Yes Complications: No Patient tolerated procedure well: Yes Follow up pending results: phone call Procedure Notes:: Tolerated well. No bleeding noted Papsmear completed: yes
== END 2025-06-20 11:11 | disposition home or self-care (01) ==
LOC: HODSOBC 10:19
PROVIDERS: Supervising Provider Advanced Practice Midwife; Visit Provider Advanced Practice Midwife
DX: Z01.419 Encounter for gynecological examination (general) (routine) without abnormal findings (principal); Z30.011 Encounter for initial prescription of contraceptive pills; Z32.02 Encounter for pregnancy test, result negative; Z88.0 Allergy status to penicillin
CPT/HCPCS: 81025; 99215; G0463